=== PATIENT | female | born 1950 | race Caucasian/White ===

== ENCOUNTER 2016-11-13 16:44 | Inpatient (IN) | payer OTHER ==
[2016-11-13] MEDS ORDERED: ONDANSETRON 4 MG/2 ML VIAL IVP ONE (16:54)
[2016-11-13] MEDS ORDERED: NS 1,000 ML IV ONE ×3 (16:54→21:42)
--- NOTE | 2016-11-13 16:54 | EDPHY ---
H & P Stated Complaint: nausea, weakness, iv chemo thursday HPI/ROS: HPI CHIEF COMPLAINT: Nausea, vomiting, diarrhea, generalized weakness, chemotherapy HISTORY OF PRESENT ILLNESS: This patient is a very pleasant 66-year-old female , significant past medical history for lung cancer, undergoing chemotherapy Dr. Kc is her oncologist, she presents to the emergency room for persistent nausea vomiting and diarrhea. Patient tells me on Thursday she got a new round and dose of chemotherapy since then she has had persistent nausea vomiting diarrhea. [facility] given IV fluids according to the patient she was given 2 L of fluid or blood pressure was running low in the 80s this did not improved after 2 L of fluids so she was referred here to the emergency room for further evaluation. Upon arrival here in emergency room she does complain of nausea, blood pressure is 89 systolic. She denies fever. She denies chest pain or shortness of breath. Denies fever. Does admit to having diarrhea denies abdominal pain. She does endorse generalized weakness. Past Medical History: Lung CA Past Surgical History: Right chest port Social History: Denies use of drugs alcohol tobacco products Family History: Noncontributory ROS REVIEW OF SYSTEMS: A comprehensive 10 point review of systems is otherwise negative aside from elements mentioned in the history of present illness. Exam Constitutional appears dehydrated triage nursing summary reviewed, vital signs reviewed, awake/alert. Eyes normal conjunctivae and sclera, EOMI, PERRLA. HENT oropharynx shows thrush, atraumatic, dry mucous membranes , no epistaxis , neck supple/ no meningismus, no raccoon eyes. Respiratory clear to auscultation bilaterally, normal breath sounds, no respiratory distress, no wheezing. Cardiovascular rate normal, regular rhythm, no murmur, no edema, distal pulses normal. Gastrointestinal soft, non-tender, no rebound, no guarding, normal bowel sounds, no distension, no pulsatile mass. Genitourinary no CVA tenderness. Musculoskeletal no midline vertebral tenderness, full range of motion, no calf swelling, no tenderness of extremities, no meningismus, good pulses, neurovascularly intact. Skin pink, warm, & dry, no rash, skin atraumatic. Neurologic awake, alert and oriented x 3, AAOx3, moves all 4 extremities equally, motor intact, sensory intact, CN II-XII intact, normal cerebellar, normal vision, normal speech. Psychiatric normal mood/affect. Heme/Lymph/Immune no lymphadenopathy. Differential Diagnosis: includes but is not limited to in a particular order, dehydration, sepsis, bacteremia, electrolyte abnormality, acute nausea vomiting from chemotherapy, acute nausea vomiting diarrhea from chemotherapy, diarrheal illness, colitis, C diff Medical Decision Making: Will access her port under sterile conditions, she will be hydrated with IV fluids normal saline, check blood work, lactic acid she will have a CT scan abdomen pelvis due to severe diarrhea and vomiting and undergoing chemotherapy to rule out acute inflammatory process. Check urinalysis. Re-evaluation: ED x-ray chest one view: negative for acute cardiopulmonary disease. No focal infiltrate. CT scan of the abdomen pelvis with IV contrast The results of the study are diffuse colitis. The study was read by Dr. Cantor. I viewed the images myself on the PACS system. 1800: re-evaluation it is noted this patient has a low potassium at 3.0 This will be repleted. blood cultures have been pulled lactic acid has been pulled. Patient is not febrile. Patient receiving IV fluids. She was initially hypotensive when she arrived here in the 80s however currently she is 102 Systolic. Patient need to be admitted to the hospital service for hypokalemia, dehydration, ongoing nausea vomiting and diarrhea. 1810: Spoke with Dr. Finley with Oncology understands this patient come into the hospital for dehydration, hypokalemia persistent nausea vomiting and diarrhea. 1813: this patient has significant inflammation of the diffuse: Concerning for severe colitis. No evidence of bowel obstruction no free air. Patient be started on Cipro and Flagyl I will send stool studies and C diff. I will update Oncology. IV Flagyl and IV Cipro has been ordered for the patient. 1820: Re-evaluation at this time blood pressure [address] scan shows diffuse colitis. No free air. No bowel obstruction. Patient has been ordered Cipro and Flagyl. Getting her 4th L of fluid. Spoke with Dr. Colmenares the hospitalist service agrees to admit this patient. Patient be admitted to step-down unit. Critical Care: Total Critical Care Time Spent Managing this Patient: 65 Minutes. This time was spent Exclusively with this patient. This Care was exclusive of procedures. The Organ System/life at risk was metabolic, hemodynamic, Sepsis This Patient was in Critical Condition because severe dehydration, colitis, hypokalemia, neutropenia Patient admitted for Sepsis. Colitis. Dehydration. Volume Depletion. However, Lactic <2.5 and BP stable in the 100s systolic. Will watch closely, if BP beomes more soft, or MAP >65 May need ICU/Pressors through Port. Blood Cultures Pulled. Broad Spectum ABx given. Source: Patient - Personal History Current Tetanus/Diphtheria Vaccine: Unsure Current Tetanus Diphtheria and Acellular Pertussis (TDAP): Unsure - Medical/Surgical History Hx Asthma: No Hx Chronic Respiratory Disease: No Hx Diabetes: No Hx Cardiac Disease: No Hx Renal Disease: No Hx Cirrhosis: No Hx Alcoholism: No Hx HIV/AIDS: No Hx Splenectomy or Spleen Trauma: No Other PMH: lung ca - Social History Smoking Status: Never smoked Constitutional: Initial Vital Signs Temperature (C) 36.4 C 11/13/16 16:50 Heart Rate 108 H 11/13/16 16:50 Respiratory Rate 16 11/13/16 16:50 Blood Pressure 89/58 L 11/13/16 16:50 O2 Sat (%) 95 11/13/16 16:50 O2 Delivery Mode Room Air O2 (L/minute) 1 Allergies/Adverse Reactions: No Known Allergies Allergy (Unverified 11/13/16 16:49) Home Medications: Medication Instructions Recorded ALPRAZolam [Xanax 0.25 MG (*)] 0.25 mg PO TID 11/13/16 Atenolol [Tenormin 25 mg (*)] 25 mg PO DAILY 11/13/16 Metformin HCl [Metformin HCl ER] 500 mg PO BID 11/13/16 Ondansetron Odt [Zofran Odt 4 mg 8 mg PO TID 11/13/16 (*)] Zolpidem Tartrate [Ambien 5MG (*)] 10 mg PO HS 11/13/16 Medical Decision Making - Data Points Laboratory Results: Laboratory Results 11/13/16 17:10 11/13/16 17:10 Medications Given: Discontinued Medications Filgrastim-Sndz (Zarxio) 300 mcg SC DAILY AT 2PM ENDY Stop: 05/13/17 13:59 Last Admin: 11/15/16 15:28 Dose: 300 mcg Sodium Chloride (Ns) 1,000 mls @ 0 mls/hr IV ONCE ONE PRN Reason: Wide Open Stop: 11/13/16 16:55 Last Admin: 11/13/16 17:21 Dose: 1,000 mls Cefepime HCl 2 gm/ Dextrose 100 mls @ 200 mls/hr IV EDNOW ONE PRN Reason: Protocol Stop: 11/13/16 18:20 Last Admin: 11/14/16 07:41 Dose: Not Given Vancomycin/Sodium Chloride (Vancomycin 1 Gm (Premix)) 250 mls @ 250 mls/hr IV EDNOW ONE PRN Reason: Protocol Stop: 11/13/16 18:50 Last Admin: 11/13/16 18:06 Dose: 250 mls Potassium Chloride (Potassium Cl 20 Meq (Premix)) 100 mls @ 50 mls/hr IV EDNOW ONE Stop: 11/13/16 19:50 Last Admin: 11/13/16 19:15 Dose: 100 mls Ciprofloxacin/Dextrose (Cipro 200 Mg (Premix)) 100 mls @ 100 mls/hr IV EDNOW ONE PRN Reason: Protocol Stop: 11/13/16 19:11 Last Admin: 11/13/16 20:43 Dose: Not Given Metronidazole/Sodium Chloride (Flagyl 500 Mg (Premix)) 100 mls @ 100 mls/hr IV EDNOW ONE PRN Reason: Protocol Stop: 11/13/16 19:11 Last Admin: 11/13/16 19:25 Dose: 100 mls Sodium Chloride (Ns) 1,000 mls @ 0 mls/hr IV ONCE ONE PRN Reason: Wide Open Stop: 11/13/16 18:17 Last Admin: 11/13/16 19:37 Dose: 1,000 mls Cefepime HCl 1 gm/ Dextrose 50 mls @ 100 mls/hr IV EDNOW ONE PRN Reason: Protocol Stop: 11/13/16 19:05 Last Admin: 11/14/16 07:41 Dose: Not Given Cefepime HCl 2 gm/ Dextrose 100 mls @ 200 mls/hr IV ONCE ONE PRN Reason: Protocol Stop: 11/13/16 19:08 Last Admin: 11/13/16 21:10 Dose: 100 mls Potassium Chloride 20 meq/ (Sodium Chloride) 1,000 mls @ 125 mls/hr IV CONT ENDY Stop: 05/12/17 18:59 Last Admin: 11/13/16 23:14 Dose: 1,000 mls Metronidazole/Sodium Chloride (Flagyl 500 Mg (Premix)) 100 mls @ 100 mls/hr IV Q8HRS ENDY PRN Reason: Protocol Stop: 12/14/16 01:59 Last Admin: 11/14/16 08:57 Dose: 100 mls Cefepime HCl 1 gm/ Dextrose 50 mls @ 100 mls/hr IV Q8HRS ENDY PRN Reason: Protocol Stop: 12/14/16 01:59 Last Admin: 11/14/16 08:56 Dose: 50 mls Norepinephrine 4 mg/ Dextrose 500 mls @ 0 mls/hr IV CONT ENDY; Titrate PRN Reason: Protocol Stop: 05/12/17 21:29 Last Admin: 11/16/16 08:51 Dose: 500 mls Sodium Chloride (Ns) 1,000 mls @ 0 mls/hr IV ONCE ONE PRN Reason: Wide Open Stop: 11/13/16 21:43 Last Admin: 11/13/16 21:50 Dose: 1,000 mls Potassium Chloride (Potassium Cl 10 Meq (Premix)) 100 mls @ 100 mls/hr IV Q1H [facility] Stop: 11/14/16 04:12 Last Admin: 11/14/16 04:10 Dose: 100 mls Vancomycin HCl 1 gm/ Dextrose 250 mls @ 250 mls/hr IV DAILY@1800 [facility] Stop: 12/14/16 17:59 Last Admin: 11/14/16 21:20 Dose: 250 mls Piperacillin/Tazobactam/Dextrose (Zosyn (Premix)) 100 mls @ 200 mls/hr IV Q6 [facility] Stop: 12/14/16 11:59 Last Admin: 11/18/16 12:31 Dose: 100 mls Micafungin Sodium 100 mg/ (Sodium Chloride) 100 mls @ 100 mls/hr IV DAILY [facility] Stop: 12/14/16 09:59 Last Admin: 11/18/16 09:22 Dose: 100 mls Potassium Chloride/Sodium Chloride (Ns W/ 20 Kcl/L) 1,000 mls @ 75 mls/hr IV CONT [facility] Stop: 05/13/17 10:14 Last Admin: 11/14/16 11:27 Dose: 1,000 mls Potassium Chloride (Potassium Cl 10 Meq (Premix)) 100 mls @ 100 mls/hr IV Q1H [facility] Stop: 11/14/16 17:28 Last Admin: 11/14/16 17:11 Dose: 100 mls Potassium Chloride (Potassium Cl 10 Meq (Premix)) 100 mls @ 100 mls/hr IV Q1H ENDY Stop: 11/15/16 00:23 Last Admin: 11/15/16 01:09 Dose: 100 mls Albumin Human (Albumin 25 % (Premix)) 50 mls @ 0 mls/hr IV ONCE ONE PRN Reason: As Directed Stop: 11/15/16 08:37 Last Admin: 11/15/16 08:46 Dose: 50 mls Sodium Chloride (Ns) 500 mls @ 0 mls/hr IV ONCE ONE PRN Reason: Wide Open Stop: 11/15/16 08:37 Last Admin: 11/15/16 08:44 Dose: 500 mls Potassium Phosphate 20 mmol/ (Dextrose) 256.6667 mls @ 42.778 mls/hr IV ONCE@ 12 ONE Stop: 11/15/16 17:59 Last Admin: 11/15/16 11:22 Dose: 256.6667 mls Sodium Chloride (Ns) 1,000 mls @ 150 mls/hr IV CONT ENDY Stop: 05/14/17 11:44 Last Admin: 11/17/16 05:44 Dose: 1,000 mls Potassium Chloride (Potassium Cl 20 Meq (Premix)) 50 mls @ 50 mls/hr IV ONCE ONE Stop: 11/16/16 00:57 Last Admin: 11/16/16 00:11 Dose: 50 mls Albumin Human (Flexbumin 25 % (Premix)) 100 mls @ 0 mls/hr IV Q6HRS ENDY PRN Reason: As Directed Stop: 05/15/17 08:33 Last Admin: 11/17/16 05:41 Dose: 100 mls Potassium Phosphate 15 mmol/ (Dextrose) 255 mls @ 42.5 mls/hr IV ONCE@12 ONE Stop: 11/16/16 17:59 Last Admin: 11/16/16 10:36 Dose: 255 mls Albumin Human (Alburx 5) 500 mls @ 0 mls/hr IV ONCE ONE PRN Reason: As Directed Stop: 11/16/16 09:50 Last Admin: 11/16/16 10:36 Dose: 500 mls Lorazepam (Ativan Injection) 1 mg IVP EDNOW ONE Stop: 11/13/16 20:50 Last Admin: 11/13/16 21:11 Dose: 1 mg Metoprolol Tartrate (Lopressor Injection) 5 mg IVP ONCE ONE Stop: 11/17/16 09:43 Last Admin: 11/17/16 12:20 Dose: Not Given Nystatin (Mycostatin Oral Liquid) 500,000 unit PO QID ENDY PRN Reason: Protocol Stop: 12/14/16 05:59 Last Admin: 11/18/16 15:34 Dose: Not Given Ondansetron HCl (Zofran) 4 mg IVP EDNOW ONE Stop: 11/13/16 16:55 Last Admin: 11/13/16 17:21 Dose: 4 mg Departure - Departure Disposition: [facility] Acute Clinical Impression: Hypokalemia, Dehydration, Thrush, Colitis Vomiting Qualifiers: Vomiting type: unspecified Vomiting Intractability: intractable Nausea presence : with nausea Qualified Code(s): R11.2 - Nausea with vomiting, unspecified Lung cancer Qualifiers: Laterality: unspecified laterality Lung location: unspecified part of lung Qualified Code(s): C34.90 - Malignant neoplasm of unspecified part of unspecified bronchus or lung Neutropenia Qualifiers: Neutropenia type: unspecified Qualified Code(s): D70.9 - Neutropenia, unspecified Condition: Fair
[2016-11-13] MEDS ORDERED: IOPAMIDOL (ISOVUE-300) 100 ML BTL IV ONE (17:09)
[2016-11-13 17:32] LABS: ADD DIFF? YES; ADD MORPH? NO; ATYPICAL LYMPHOCYTE FLAG 0 (0-99); FRAGMENT RBC FLAG 0 (0-99); HEMOGLOBIN 9.4 g/dL (12.6-16.3); LEFT SHIFT FLG 70 (0-99); LIPEMIA HEMOLYSIS FLAG 80 (0-99); MEAN CELL HEMOGLOBIN 28.8 pg (27.9-34.1); MEAN CELL HEMOGLOBIN CONCENTR. 33.6 g/dL (32.4-36.7); MEAN CELL VOLUME 85.9 fL (81.5-99.8); MEAN PLATELET VOLUME 11.7 fL (8.7-11.7); PLATELET CLUMPS FLAG 10 (0-99); PLATELET COUNT 166 10^3/uL (150-400); RED BLOOD CELL COUNT 3.26 10^6/uL (4.18-5.33); RED CELL DISTRIBUTION WIDTH 13.1 % (11.5-15.2)
[2016-11-13 17:37] LABS: ADD SCAN? NO
[2016-11-13 17:38] LABS: INR 1.44 (0.83-1.16); PROTIME(PATIENT) 17.5 SEC (12.0-15.0)
[2016-11-13 17:45] LABS: ALANINE AMINOTRANSFERASE 37 IU/L (9-52); ALBUMIN 2.1 g/dL (3.5-5.0); ALKALINE PHOSPHATASE 79 IU/L (38-126); ANION GAP 7 mEq/L (8-16); ASPARTATE AMINOTRANSFERASE 23 IU/L (14-46); BILIRUBIN,TOTAL 0.6 mg/dL (0.1-1.4); BILIRUBIN-CONJUGATED 0.4 mg/dL (0.0-0.5); BILIRUBIN-UNCONJUGATED 0.2 mg/dL (0.0-1.1); CALCIUM 8.1 mg/dL (8.5-10.4); CARBON DIOXIDE 18 mEq/l (22-31); CHLORIDE 112 mEq/L (97-110); CREATININE 0.8 mg/dL (0.6-1.0); GLOMERULAR FILTRATION RATE > 60; GLUCOSE 160 mg/dL (70-100); SODIUM 137 mEq/L (134-144); TOTAL PROTEIN 4.2 g/dL (6.3-8.2)
[2016-11-13] MEDS ORDERED: VANCOMYCIN HCL/NORMAL SALINE 250 ML IV ONE (17:51)
[2016-11-13] MEDS ORDERED: CEFEPIME HCL 2 GM in D5W 100 ML IV ONE ×2 (17:51→18:39)
[2016-11-13] MEDS ORDERED: POTASSIUM Cl (KCl) 100 ML IV ONE (17:51)
[2016-11-13] MEDS ORDERED: POTASSIUM Cl (KCl) 20 MEQ/50 ML BAG IV ONE (17:55)
[2016-11-13] MEDS ORDERED: CIPROFLOXACIN 200 MG/DEXTROSE 100 ML IV ONE (18:12)
[2016-11-13] MEDS ORDERED: CEFEPIME HCL 1 GM in D5W 50 ML IV ONE (18:36)
--- NOTE | 2016-11-13 18:36 | PDGENHP ---
History and Physical - Chief Complaint N/V/D - History of Present Illness 66 yo female with h/o NSCLC, followed by Dr. Kc, presented to ED from [facility] with hypotension. She was found to have a sbp in the 70's on arrival for her clinic appointment today. She received 2 L NS and SBP still in low 80's, thus she was sent to the ED. She recently started a new chemo regimen 6 days ago, Taxotere and Ramucirumab. She began feeling poorly shortly after, with vomiting and multiple episodes of watery diarrhea daily. She denies fevers or chills. She otherwise denies abdominal pain. In the ED, she received 2 more liters of NS. Her SBP is maintaining >100. History Information - Allergies/Home Medication List Allergies/Adverse Reactions: No Known Allergies Allergy (Unverified 11/13/16 16:49) Home Medications: ALPRAZolam [Xanax 0.25 MG (*)] 0.25 mg PO TID 11/13/16 [Last Taken 11/13/16 12: 00] Atenolol [Tenormin 25 mg (*)] 25 mg PO DAILY 11/13/16 [Last Taken Unknown] Metformin HCl [Metformin HCl ER] 500 mg PO BID 11/13/16 [Last Taken 11/12/16] Ondansetron Odt [Zofran Odt 4 mg (*)] 8 mg PO TID 11/13/16 [Last Taken 11/12/16 20:00] Zolpidem Tartrate [Ambien 5MG (*)] 10 mg PO HS 11/13/16 [Last Taken 11/12/16] I have personally reviewed and updated: family history, medical history, social history, surgical history - Past Medical History Additional medical history: non-small cell lung cancer, anemia, - Surgical History Additional surgical history: chest wall port - Family History Positive for: non-pertinent Additional family history: both parents are - Social History Smoking Status: Never smoked Alcohol Use: None Drug Use: None Additional social history: Lives alone, son lives 1 block away, and is present at bedside. Review of Systems ROS: 10pt was reviewed & negative except for what was stated in HPI & below Physical Exam Temp Pulse Resp BP Pulse Ox 36.6 C 96 16 90/49 L 99 11/13/16 18:00 11/13/16 18:00 11/13/16 18:00 11/13/16 18:00 11/13/16 18:00 Constitutional: no apparent distress Eyes: PERRL Ears, Nose, Mouth, Throat: moist mucous membranes Cardiovascular: regular rate and rhythym, no murmur, rub, or gallop Respiratory: no respiratory distress, clear to auscultation Gastrointestinal: normoactive bowel sounds, soft, non-tender abdomen Skin: other (+pallor, decreased capillary refill) Musculoskeletal: full muscle strength Neurologic: AAOx3 Psychiatric: interacting appropriately Lab Data & Imaging Review 11/13/16 17:10 11/13/16 17:10 WBC 0.37 10^3/uL (3.80-9.50) L* 11/13/16 17:10 RBC 3.26 10^6/uL (4.18-5.33) L 11/13/16 17:10 Hgb 9.4 g/dL (12.6-16.3) L 11/13/16 17:10 Hct 28.0 % (38.0-47.0) L 11/13/16 17:10 MCV 85.9 fL (81.5-99.8) 11/13/16 17:10 MCH 28.8 pg (27.9-34.1) 11/13/16 17:10 MCHC 33.6 g/dL (32.4-36.7) 11/13/16 17:10 RDW 13.1 % (11.5-15.2) 11/13/16 17:10 Plt Count 166 10^3/uL (150-400) 11/13/16 17:10 MPV 11.7 fL (8.7-11.7) 11/13/16 17:10 Neut % (Auto) Not Reported 11/13/16 17:10 Lymph % (Auto) Not Reported 11/13/16 17:10 [place] % (Auto) Not Reported 11/13/16 17:10 Eos % (Auto) Not Reported 11/13/16 17:10 Baso % (Auto) Not Reported 11/13/16 17:10 Nucleat RBC Rel Count 0.0 % (0.0-0.2) 11/13/16 17:10 Absolute Neuts (auto) Not Reported 11/13/16 17:10 Absolute Lymphs (auto) Not Reported 11/13/16 17:10 Absolute Monos (auto) Not Reported 11/13/16 17:10 Absolute Eos (auto) Not Reported 11/13/16 17:10 Absolute Basos (auto) Not Reported 11/13/16 17:10 Absolute Nucleated RBC 0.00 10^3/uL (0-0.01) 11/13/16 17:10 Immature Gran % Not Reported 11/13/16 17:10 Immature Gran # Not Reported 11/13/16 17:10 PT 17.5 SEC (12.0-15.0) H 11/13/16 17:10 INR 1.44 (0.83-1.16) H 11/13/16 17:10 APTT 34.0 SEC (23.0-38.0) 11/13/16 17:10 VBG Lactic Acid 1.8 mmol/L (0.7-2.1) 11/13/16 16:54 Sodium 137 mEq/L (134-144) 11/13/16 17:10 Potassium 3.0 mEq/L (3.5-5.2) L 11/13/16 17:10 Chloride 112 mEq/L (97-110) H 11/13/16 17:10 Carbon Dioxide 18 mEq/l (22-31) L 11/13/16 17:10 Anion Gap 7 mEq/L (8-16) L 11/13/16 17:10 BUN 18 mg/dL (7-23) 11/13/16 17:10 Creatinine 0.8 mg/dL (0.6-1.0) 11/13/16 17:10 Estimated GFR > 60 11/13/16 17:10 Glucose 160 mg/dL (70-100) H 11/13/16 17:10 Calcium 8.1 mg/dL (8.5-10.4) L 11/13/16 17:10 Total Bilirubin 0.6 mg/dL (0.1-1.4) 11/13/16 17:10 Conjugated Bilirubin 0.4 mg/dL (0.0-0.5) 11/13/16 17:10 Unconjugated Bilirubin 0.2 mg/dL (0.0-1.1) 11/13/16 17:10 AST 23 IU/L (14-46) 11/13/16 17:10 ALT 37 IU/L (9-52) 11/13/16 17:10 Alkaline Phosphatase 79 IU/L (38-126) 11/13/16 17:10 Total Protein 4.2 g/dL (6.3-8.2) L 11/13/16 17:10 Albumin 2.1 g/dL (3.5-5.0) L 11/13/16 17:10 Lipase 35.0 IU/L (23-300) 11/13/16 17:10 Assessment & Plan Assessment: Septic shock with colitis in the setting of N/V/D - Initially considered hypotension secondary to volume depletion due to GI losses. She is afebrile with a normal lactate, but tachycardic, leukopenic, and has hypotension refractory to 4 L NS fluid boluses, meeting criteria for septic shock. Query C diff colitis. GI pathogen panel pending. With her colitis (?neutropenic enterocolitis), she is at risk for bacterial translocation and bacteremia. -Cont Cefepime, Vanc and IV Flagyl to cover for possible C diff -Add oral Vanc if C diff positive -f/u BCx's and GI pathogen panel -Pressors ordered to maintain MAP >65, add hydrocortisone if requires 2nd pressor -ID consulted Hypokalemia (Acute) - secondary to GI losses. Replace, follow. Metabolic acidosis - lactate normal, may be due to volume depletion. Follow. Metastatic non-small cell lung cancer - Followed by Dr. Kc. Was on Novolumab , just started Taxotere and Ramucirumab 3 days ago. Pt agreeable to palliative care consult, which is ordered -Onc consult tomorrow Portal vein thrombosis - near complete occlusion secondary to compression and thrombus. This sounds more chronic than acute. -will give Lovenox 40 mg tonight, her weight is just 47 kg -can discuss with heme tomorrow if ongoing anti-coagulation is warranted Neutropenia (Acute) - Chronic, secondary to chemo, afebrile. Receiving Neupogen. Anemia - likely BM suppression secondary to chemo. No indication for transfusion at this time. Thrush (Acute) - Nystatin DVT PPLX - Lovenox Code status addressed - pt wishes to be DNR Dispo - inpt
[2016-11-13] MEDS ORDERED: PROTOCOL POTASSIUM 1 DOSE MISC PRN (18:41)
[2016-11-13] MEDS ORDERED: HYDROmorphONE/DILAUDID 1 MG/ML SYR IVP PRN (18:41)
[2016-11-13] MEDS ORDERED: ONDANSETRON DISINTEGRATING 4 MG TAB PO PRN (18:41)
[2016-11-13] MEDS ORDERED: PROTOCOL MAGNESIUM 1 DOSE IV PRN (18:41)
[2016-11-13 18:51] LABS: COLOR PALE YELLOW; LEUKOCYTE ESTERASE,URINE NEGATIVE (NEGATIVE); NITRITE,URINE NEGATIVE (NEGATIVE)
[2016-11-13] MEDS ORDERED: POTASSIUM Cl (KCl) 20 MEQ in 1/2 NS 1,000 ML IV SCH (19:00)
[2016-11-13 19:59] LABS: ELLIPTOCYTES 1+; KERATOCYTES 1+; MACROCYTES 1+; PLATELET ESTIMATE ADEQUATE (ADEQ); POLYCHROMASIA 1+
[2016-11-13] MEDS: ONDANSETRON 4 MG/2 ML VIAL IVP PRN (20:44)
[2016-11-13] MEDS ORDERED: LORazepam 2 MG/ML INJ ONE (20:46)
[2016-11-13] MEDS ORDERED: LORazepam 2 MG/ML INJ IVP ONE (20:49)
[2016-11-13] MEDS ORDERED: VANCOMYCIN 125 MG/2.5 ML UDL PO SCH (21:00)
[2016-11-13] MEDS ORDERED: DOBUTamine/DEXTROSE 250 ML IV SCH (21:30)
[2016-11-13] MEDS ORDERED: VASOPRESSIN/DEXTROSE 250 ML IV SCH (21:30)
[2016-11-13] MEDS ORDERED: PHENYLEPHRINE HCL 50 MG in D5W 250 ML IV SCH (21:30)
--- NOTE | 2016-11-13 21:57 | CPEKG ---
Heart Rate: 153 RR Interval: 392 P-R Interval: 132 QRSD Interval: 62 QT Interval: 224 QTC Interval: 358 P Delaplane: 47 QRS Delaplane: 31 T Wave Delaplane: 213 EKG Severity - ABNORMAL ECG - EKG Impression: SINUS TACHYCARDIA EKG Impression: LOW VOLTAGE IN FRONTAL LEADS EKG Impression: BORDERLINE R WAVE PROGRESSION, ANTERIOR LEADS EKG Impression: NONSPECIFIC T ABNORMALITIES, DIFFUSE LEADS Electronically Signed By: Nick Avila 13-Nov-2016 22:28:39
[2016-11-13] MEDS ORDERED: ALPRAZolam 0.25 MG TAB PO PRN (22:58)
[2016-11-13 23:57] LABS: MIXED VENOUS O2 SATURATION 73 % (65-75)
[2016-11-13] MEDS: ZOLPIDEM TARTRATE 5 MG TAB PO SCH (23:58)
[2016-11-14] MEDS: NOREPINEPHRINE BITARTRATE 4 MG in D5W 500 ML IV SCH ×2 (00:59→17:11)
[2016-11-14] MEDS: ZOLPIDEM TARTRATE 5 MG TAB PO SCH ×2 (01:16→20:35)
[2016-11-14 01:17] LABS: POTASSIUM 3.1 mEq/L (3.5-5.2)
[2016-11-14] MEDS: POTASSIUM Cl (KCl) 100 ML IV SCH ×10 (01:27→23:15)
[2016-11-14] MEDS: CEFEPIME HCL 1 GM in D5W 50 ML IV SCH ×2 (02:54→08:56)
[2016-11-14 02:57] LABS: MIXED VENOUS O2 SATURATION 94 % (65-75)
[2016-11-14] MEDS: NYSTATIN SUSP 500000 UNIT/5 ML UDCUP PO SCH ×4 (04:28→20:35)
[2016-11-14 05:44] LABS: ABSOLUTE NRBC COUNT 0.02 10^3/uL (0-0.01); ATYPICAL LYMPHOCYTE FLAG 0 (0-99); FRAGMENT RBC FLAG 0 (0-99); HEMATOCRIT 29.7 % (38.0-47.0); HEMOGLOBIN 9.6 g/dL (12.6-16.3); LIPEMIA HEMOLYSIS FLAG 80 (0-99); MEAN CELL HEMOGLOBIN 28.6 pg (27.9-34.1); MEAN CELL HEMOGLOBIN CONCENTR. 32.3 g/dL (32.4-36.7); MEAN CELL VOLUME 88.4 fL (81.5-99.8); PLATELET CLUMPS FLAG 10 (0-99); PLATELET COUNT 247 10^3/uL (150-400); RED BLOOD CELL COUNT 3.36 10^6/uL (4.18-5.33); RED CELL DISTRIBUTION WIDTH 13.5 % (11.5-15.2)
[2016-11-14 05:53] LABS: ANION GAP 10 mEq/L (8-16); CARBON DIOXIDE 12 mEq/l (22-31); CHLORIDE 120 mEq/L (97-110); CREATININE 0.8 mg/dL (0.6-1.0); GLOMERULAR FILTRATION RATE > 60; GLUCOSE 193 mg/dL (70-100); MAGNESIUM 1.9 mg/dL (1.6-2.3); POTASSIUM 4.2 mEq/L (3.5-5.2); SODIUM 142 mEq/L (134-144)
[2016-11-14 06:45] LABS: ADD MORPH? NO; LEFT SHIFT FLG 190 (0-99); NRBC-AUTO% 2.9 % (0.0-0.2)
[2016-11-14 06:47] LABS: ADD SCAN? NO
[2016-11-14 06:48] LABS: % IMMATURE GRANULYOCYTES 1.5 % (0.0-1.1)
[2016-11-14 06:49] LABS: ABSOLUTE IMMATURE GRANULOCYTES 0.01 10^3/uL (0.00-0.10); ADD DIFF? NO
[2016-11-14] MEDS: ENOXAPARIN 40 MG/0.4 ML SYR SC SCH (08:57)
[2016-11-14] MEDS ORDERED: ENOXAPARIN 40 MG/0.4 ML SYR SC SCH (09:00)
--- NOTE | 2016-11-14 09:32 | GCON ---
INPATIENT ONCOLOGY CONSULTATION DATE OF CONSULTATION: 11/14/2016 REFERRING PHYSICIAN: Bee Colmenares MD Outpatient oncologist is Dr. Alva Kc. REASON FOR CONSULTATION: Neutropenic fever and typhlitis. HISTORY OF PRESENT ILLNESS: The patient is a 66-year-old woman with metastatic non-small cell lung cancer. She received her first dose of third line chemotherapy a week ago, consisting of Taxotere and ramucirumab. She has extensive pulmonary metastases, as well as liver mets and metastases involving the mesenteric root, pancreatic head, left adrenal gland, and mesenteric and retroperitoneal lymph nodes. She began to develop nausea, vomiting and diarrhea a day or two after the chemotherapy and has been in this week to clinic everyday for fluids. Yesterday she was noted to be febrile and also had a low blood pressure. She was transferred to the emergency department. Her blood pressure remained low despite aggressive fluid resuscitation, and she was admitted to the intensive care unit. She remains on Levophed, but that is being weaned off. Her CT scan showed typhlitis, without evidence of abscess or perforation. She says that she is feeling somewhat better this morning, but does feel extremely weak and continues to have some diarrhea. She does not have any abdominal pain. PAST MEDICAL HISTORY: Non-small cell lung cancer, as described above. CURRENT MEDICATIONS: Include cefepime, Lovenox 40 mg subcutaneously daily, Flagyl and vancomycin. ALLERGIES: She has no drug allergies. FAMILY HISTORY: Noncontributory. SOCIAL HISTORY: She is a former smoker. She lives alone, though her son lives in the area. REVIEW OF SYSTEMS: Pertinent positives noted in the HPI. A 14-point review of systems is negative. EXAMINATION: VITAL SIGNS: Her temperature was 36.6, blood pressure 103/59, heart rate 125, oxygen saturation 100% on 2 L. GENERAL: She was a tired, pale- appearing woman in no acute distress. HEENT: Sclerae anicteric. Oropharynx was clear. NECK: Supple, without lymphadenopathy. LUNGS: Clear to auscultation bilaterally. CARDIAC: Regular rate and rhythm. No murmurs, gallops, or rubs. ABDOMEN: Quiet bowel sounds but was nontender, nondistended. EXTREMITIES: Without edema. SKIN: No petechiae or purpura. LABORATORY DATA: White count 0.68, with absolute neutrophil count of 190, hemoglobin 9.6, platelets of 247. Sodium 142, potassium 4.2, chloride 120, bicarb of 12, BUN of 15, creatinine 0.8. Liver function tests were normal. Her lactic acid was normal at 1.7. Blood cultures grew out Klebsiella pneumoniae in the anaerobic bottle. IMPRESSION: 1. Metastatic non-small cell lung cancer. 2. Febrile neutropenia. 3. Septic shock due to Klebsiella. She is currently hemodynamically stable, though remains quite ill. A causative organism has been identified. The likely source is the GI tract. RECOMMENDATIONS: 1. Continue broad-spectrum antibiotics and other hemodynamic support. 2. Will add Neupogen to speed the recovery of her white count. 3. She will obviously require significant modifications to her chemotherapy regimen or discontinuation completely of that therapy. She will discuss this with Dr. Kc when she is out of the hospital. /[id number]/MODL MTDD
[2016-11-14] MEDS: MICAFUNGIN NA 100 MG in NS 100 ML IV SCH (10:14)
[2016-11-14] MEDS ORDERED: NS W/ 20 KCl/L 1,000 ML IV SCH (10:15)
[2016-11-14] MEDS: ONDANSETRON 4 MG/2 ML VIAL IVP PRN (10:58)
--- NOTE | 2016-11-14 11:17 | GCON ---
INFECTIOUS DISEASE CONSULT DATE OF CONSULTATION: 11/14/2016 REFERRING PHYSICIAN: Bee Colmenares MD REASON FOR CONSULT: To assist in the management of this 66-year-old female with metastatic non-small cell lung cancer admitted with sepsis. HISTORY OF PRESENT ILLNESS: The patient is a 66-year-old female whose previous medical history is notable for the followin. Metastatic non-small cell lung cancer: Patient was originally diagnosed in [place], [place] last year when she presented with jaundice and compression on her biliary tree from tumor. She was stented at that time. She moved to [place], [place] in May and has been followed by Dr. Kc. Last week, she received her first dose of 3rd line chemotherapy consisting of Taxotere and ramucirumab. Please see discussion below. 2. History of tobacco in the distant past. Regarding her present issues, the patient received chemotherapy as outlined above approximately 1 week ago. Less than 12 hours later, the patient felt significantly unwell with nausea, vomiting and general malaise. Approximately 1 day later, she developed significant watery diarrhea, nonbloody. No associated abdominal pain. This past week she has developed shaking chills and presented yesterday to [facility] where she was found to be significantly hypotensive with systolic blood pressure in the 80s. [facility] and started on broad- spectrum antibiotics and Levophed. A CT scan of the abdomen and pelvis with contrast showed diffuse colitis, particularly in the right side of the colon, consistent with neutropenic enterocolitis, without evidence of abscess or perforation (the patient is notably neutropenic). Speaking with the patient this morning in the presence of her son, she states that she still feels unwell with fatigue being her biggest complaint. She denies abdominal pain, but is nauseated and has been vomiting. She also has significant anorexia and has no desire to eat. She states this has been going on for the past week. She has a mild sore throat and tells me that the sore throat extends into her chest. She denies headache, blurred vision, confusion, chest pain, cough, vaginal discharge, dysuria, skin rash or other. Aside from what is listed above, 10 systems are reviewed and are negative. PREVIOUS MEDICAL HISTORY: As outlined above. MEDICATIONS: Presently include cefepime 1 g IV q.8 hours, metronidazole 500 mg IV q.8 hours, vancomycin 1 g IV daily, Levophed, Lovenox, filgrastim. ALLERGIES: No known drug allergies. SOCIAL HISTORY: The patient is a former smoker. 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 She presently lives in [place] by herself. She has no pets. No recent travel within or outside [facility] [employer] [facility]. No recent antibiotic use. No undercooked foods, poultry , raw eggs or other. No unusual exposures. She is exposed to 3 grandchildren, ages 16, 11 and 8, but none have had a diarrheal illness or feel ill. She has a very supportive son who lives here in [place]. No alcohol. Heavy tobacco use previously. FAMILY HISTORY: Noncontributory. REVIEW OF SYSTEMS: As outlined above. Otherwise, 10 systems are reviewed and all are negative. PHYSICAL EXAM: VITAL SIGNS: T-current is 36.6, T-max equals same, heart rate 103, blood pressure 103/63. She is saturating 100% on 2 L. GENERAL: Chronically ill-appearing female, pale, looks older than stated age, lying in bed. HEENT: Atraumatic, normocephalic. Pupils equal, round, reactive to light. Extraocular movements are intact. No conjunctival injection, icterus or petechiae. Her neck is supple. No sinus process tenderness or discharge from the nares. Mucous membranes are moist. The patient has extensive oral candidiasis with white plaques on the buccal mucosa bilaterally, beneath her tongue, as well as coating the posterior oropharynx. NECK: Notable for no cervical adenopathy. No thyromegaly or palpable thyroid nodules. CARDIOVASCULAR: S1 and S2. No rubs, gallops or murmurs audible. She is not tachycardic on my exam. CHEST: The patient has a port in her right chest that has been present for the past year. There is no tenderness or evidence of erythema surrounding the port. LUNGS: Clear to auscultation bilaterally with no rales, rhonchi, or wheeze. No increased respiratory effort. ABDOMEN: Not distended. Soft. Hypoactive bowel sounds. No tenderness to palpation on exam. EXTREMITIES: No muscle belly tenderness or evidence of arthritis. SKIN : Warm and dry. No obvious rashes. Overall pale. NEUROLOGIC: The patient is alert and oriented x3. She is moving all 4 extremities. No sensory deficits. LABORATORY DATA: Blood cultures drawn on admission yesterday afternoon. PCR has identified Klebsiella pneumoniae. GI tract PCR is pending. White blood cell count of 0.68, hematocrit of 29.7, platelet count of 247. INR 1.44. BUN and creatinine 15/0.8. AST 23, ALT 37, alkaline phosphatase 79. Bicarbonate 12. Urinalysis is normal. RADIOGRAPHIC DATA: Abdominal CT scan reviewed personally with Dr. Land reveals diffuse colitis, particularly on the right side of the colon with no evidence of perforation or abscess. The patient has extensive metastatic disease to the liver, pancreas, mesenteric root, left adrenal gland and retroperitoneal nodes. 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 This was visible on CT scan dated October 23, 2016. Chest x-ray: No evidence of pneumonia. IMPRESSION: Unfortunate 66-year-old female with metastatic non-small cell lung carcinoma status post chemotherapy last week with Taxotere and ramucirumab who now presents with neutropenic enterocolitis and consequent gram negative bacteremia. C. difficile seems less likely. The patient also has extensive oral candidiasis with a probable component of esophageal disease. PLAN: 1. Continue Vancomycin for now pending maturation of blood cultures. Hopefully can discontinue this antibiotic shortly. 2. Change Cefepime and Metronidazole to Zosyn 4.5 g IV q.6 hours for better enterococcal coverage in the setting of neutropenic enterocolitis. 3. Stool PCR (which includes C. difficile testing) is pending. 4. Because the patient has bacteria growing through her port, she may need this removed if she does not clear her bacteremia quickly. Will make this decision moving forward during her hospitalization. 5. The patient has extensive oropharyngeal candidiasis and probable esophageal disease. Will add Micafungin for now pending blood culture results. Can likely transition to fluconazole at a later date. 6. Given metastases to one of her adrenal glands, check serum cortisol. 7. Repeat blood cultures tomorrow. Thank you very much for consulting Infectious Diseases. We will continue to follow this patient with you. /[id number]/MODL MTDD
[2016-11-14] MEDS: FAMOTIDINE 20 MG TAB PO SCH ×2 (11:30→20:35)
[2016-11-14] MEDS: LORazepam 0.5 MG TAB PO PRN ×2 (11:30→18:15)
[2016-11-14] MEDS: PIPERACILLIN/TAZO 4.5 GM/DEX 100 ML IV SCH ×2 (12:42→17:44)
--- NOTE | 2016-11-14 13:06 | CPEKG ---
Heart Rate: 104 RR Interval: 577 P-R Interval: 124 QRSD Interval: 66 QT Interval: 332 QTC Interval: 437 P Latty: 8 QRS Latty: 27 T Wave Latty: 17 EKG Severity - OTHERWISE NORMAL ECG - EKG Impression: SINUS TACHYCARDIA Electronically Signed By: Alli Monson 14-Nov-2016 14:44:50
[2016-11-14 13:22] LABS: POTASSIUM 3.2 mEq/L (3.5-5.2)
--- NOTE | 2016-11-14 13:57 | PDPCPN ---
Palliative Care Progress Note Assessment/Plan: Referring provider: Dr Colmenares Reason for Consult: Complex medical decision making symptom control HPI: Chanel Apodaca is a 66 yo female with PMH NSCLC with mets to liver, pancreas, and adrenal glands admitted to the hospital for increasing nausea/vomiting, diarrhea, and hypotension. Being treated for septic shock 2/2 klebsiella. Required ICU admission for pressor support which is being weaned down. Recently started third line chemotherapy 1 week ago with uncontrolled symptoms of nausea/ vomiting and diarrhea since then. On admission with neutropenia. Palliative care consulted for complex medical decision making. Spoke with son Jaxon outside of the room this morning. He shared Chanel's journey over the past year. She was dx about 1 year ago in October. She thought she was having some gallbladder issues but was dx with stage IV lung cancer. She then retired from her job and moved to [place] to be closer to her son. She underwent first line treatment and maintained a good quality of life and was hopeful for the future. Jaxon stated he has been prepared for the end of her life since her dx but feels Chanel has always had hope for the future. It was hard when she did not do well with the second line treatment a few weeks ago finding out it was not working as well with side effects. They have discussed all options including continued treatment vs comfort only. Jaxon feels Chanel values being independent and a private person. They would like more help at home but Jaxon is unsure how Chanel feels about further treatment for her cancer but hopes to have the conversation again when she is back at home. Assessment: physical: - pain: on occasion in abdomen - dilaudid PRN IV or oxy IR PRN - Nausea/vomiting: - zofran PRN - if needing something more then compazine - Diarrhea: - on antibiotics per primary team - consider immodium if continues Emotional/psychological: - Anxiety: at home on xanax 0.25mg TID scheduled Advanced care planning: Is patient decisional?: yes with help MDPOA: son Jaxon is MDPOA. Paperwork on file at [facility] Code status: DNR Plan: Continue palliative care conversations as needed. Likely decide on future chemo treatments as outpatient. Family would like information on increased support at home for now and in the future as needed. Subjective: fatigued Objective: Social History: Moved from [place] last year to be closer to her son. 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 Medication list reviewed ROS: General: fatigue, weakness, weight loss ENT: negative Resp: negative GI: poor appetite, diarrhea, nausea/vomiting : negative MS: occasional abdominal pain Skin: negative Neuro: some confusion Psych: anxiety Functional assessment: PPS: 40% Functional status: prior to hospitalization independent with ADLs, now with weakness and requires some assistance with all ADLs. Vital Signs Temp Pulse Resp BP Pulse Ox 36.6 C 103 H 20 89/50 L 98 11/13/16 22:48 11/14/16 13:08 11/14/16 13:08 11/14/16 13:08 11/14/16 13:08 Laboratory Results 11/14/16 05:15 11/14/16 12:45 11/13/16 11/14/16 11/15/16 05:59 05:59 05:59 Intake Total 3810 412 Output Total 2700 800 Balance 1110 -388 PT 17.5 SEC (12.0-15.0) H 11/13/16 17:10 INR 1.44 (0.83-1.16) H 11/13/16 17:10 Physical Exam - Physical Exam General Appearance: other (fatigued) Respiratory: No respiratory distress, No accessory muscle use Skin: normal color, warm/dry Neuro/Psych: oriented x 3 ICD10 Worksheet Patient Problems: Problems Problem Status Onset Colitis Acute Dehydration Acute Hypokalemia Acute Lung cancer Acute Neutropenia Acute Palliative care encounter Acute Thrush Acute Vomiting Acute - ICD10 Problem Qualifiers (1) Palliative care encounter
[2016-11-14] MEDS: LOPERAMIDE HCL 2 MG CAP PO PRN ×3 (14:14→20:35)
[2016-11-14] MEDS: FILGRASTIM-SNDZ 300 MCG/0.5 ML SYR SC SCH (14:35)
--- NOTE | 2016-11-14 16:32 | GCON ---
DATE OF CONSULTATION: 11/14/2016 REFERRING PHYSICIAN: Jenn Bravo MD PULMONARY/CRITICAL CARE CONSULTATION REASON FOR REFERRAL: Evaluation and management of hypotension and fever. HISTORY: The patient is a 66-year-old woman with a history of metastatic non-small cell lung cancer which was diagnosed in [place] when she presented with jaundice and a tumor compressing her biliary t ree. A stent was placed. She then moved to [place], [place] and started 3rd line chemotherapy las t week with Taxotere and ramucirumab. She started to develop nausea, vomiting and diarrhea a day or 2 after chemotherapy and had been in the clinic every day getting fluids. Yesterday, she was found to be febrile and also had a low blood pressure, so was transferred to the emergency department. S he remained hypotensive despite fluid resuscitation and was transferred to the intensive care unit. Cefepime, vancomycin and IV Flagyl were given, as well as fluids. The patient has been on norepine phrine, and her dose has been able to be weaned, but she gets hypotensive if it is reduced too quick ly. The patient reports that she feels better. She said her nausea and vomiting have improved and she is not having diarrhea right now. Her sore throat that she had early is a bit better. She feel s that her energy is a little bit better and she feels stronger. PAST MEDICAL HISTORY: Anemia. ALLERGIES: None. SOCIAL HISTORY: The patient is a former smoker. She denies alcohol use. FAMILY HISTORY: Unremarkable. REVIEW OF SYSTEMS: A 10-point review of systems adds nothing to the History of Present Illness. PHYSICAL EXAMINATION: GENERAL: The patient was sleeping but arousable. She is still somewhat weak . VITAL SIGNS: Her blood pressure is 119/76 with a pulse of 110. She is afebrile. Oxygen saturat ions are 99% on room air. HEENT: Normocephalic and atraumatic. She has oral candidiasis. No icte duncan. NECK: No adenopathy. Trachea is midline. CHEST: Clear to auscultation. CARDIAC: Regular rate and rhythm without murmur. ABDOMEN: Soft and nontender. Bowel sounds are present. EXTREMITI ES: No clubbing, cyanosis or edema. LABORATORY: Chemistry group shows a normal BUN and creatinine of 15 and 0.8. Carbon dioxide level is 12, down from 18. A potassium is 3.2. Her glucose is 193. An anion gap is 10, up from 7. Whit e blood count is 0.7, hemoglobin is 9.6, platelet count is 247. An INR is 1.4. Arterial blood gas shows a venous lactate of 1.7. A chest x-ray shows clear lungs with elevation of the right hemidiap hragm. IMAGES REVIEWED: A CT scan of the abdomen shows diffuse colitis with extensive metastatic disease a ffecting the liver, pancreas, mesenteric root, left adrenal gland and retroperitoneal eduard nodes. A blood culture from November 13 is positive for Klebsiella pneumonia. ASSESSMENT: 1. Klebsiella pneumonia/sepsis. This is likely due to typhlitis, with colitis seen on the CT scan and neutropenia. The patient's antibiotics have been changed to vancomycin and Zosyn. The blood cu lture that was drawn came from her chemotherapy port, so this may be infected. 2. Hypertension. The patient had tachycardiac and this is improved. The hypertension is improved, but the patient is still requiring low-dose norepinephrine. This is likely due to the patient's ba cteremia/sepsis. She is clinically improved. 3. Esophageal candidiasis. The patient has been started on micafungin. 4. Tachycardia. This is improved. 5. Metastatic lung cancer. 6. Neutropenia. The patient is being followed by Oncology and has been started on Neupogen. RECOMMENDATIONS: 1. Continue IV fluids and pressors in order to maintain blood pressure. 2. Antibiotics have been adjusted by Infectious Disease. 3. Neupogen as per Oncology. 4. Start p.o. as tolerated. 5. Repeat blood cultures to see how quickly the bacteremia clears. If it does not clear quickly, t he port will probably need to be removed. /[id number]/MODL
[2016-11-14] MEDS ORDERED: VANCOMYCIN 1 GM in D5W 250 ML IV SCH (18:00)
--- NOTE | 2016-11-14 18:56 | HOSPPROG ---
Hospitalist Progress Note Assessment/Plan: * septic shock * wean levophed * cont iv fluids * source is klebsiella bacteremia * klebsellia bacteremia * port may be involved * neutropenic fever * neuopgen * broad spectrum abx *Diarrhea/typhlitis * gi panel negative * start lomotil * thrush * metastatic nonsmall cell lung cancer 35 min critical time spent Subjective: feels pretty weak. poor appetite Objective: Vital Signs Temp Pulse Resp BP Pulse Ox 36.6 C 104 H 25 H 102/73 92 11/13/16 22:48 11/14/16 18:00 11/14/16 18:00 11/14/16 18:00 11/14/16 18:00 Laboratory Results 11/14/16 05:15 11/14/16 12:45 11/13/16 11/14/16 11/15/16 05:59 05:59 05:59 Intake Total 3810 1491 Output Total 2700 1550 Balance 1110 -59 PT 17.5 SEC (12.0-15.0) H 11/13/16 17:10 INR 1.44 (0.83-1.16) H 11/13/16 17:10 discussed with pulm, ID - Physical Exam Constitutional: no apparent distress, appears nourished, not in pain Eyes: anicteric sclera, EOMI Ears, Nose, Mouth, Throat: oral thrush Cardiovascular: regular rate and rhythym, no murmur, rub, or gallop Respiratory: no respiratory distress, no rales or rhonchi, clear to auscultation Gastrointestinal: normoactive bowel sounds, soft, non-tender abdomen, no palpable masses Skin: warm Neurologic: AAOx3 Psychiatric: interacting appropriately, not anxious, not encephalopathic, thought process linear ICD10 Worksheet Patient Problems: Problems Problem Status Onset Colitis Acute Dehydration Acute Hypokalemia Acute Lung cancer Acute Neutropenia Acute Palliative care encounter Acute Thrush Acute Vomiting Acute
[2016-11-14 21:11] LABS: POTASSIUM 3.6 mEq/L (3.5-5.2)
[2016-11-15] MEDS: POTASSIUM Cl (KCl) 100 ML IV SCH (01:09)
[2016-11-15] MEDS: PIPERACILLIN/TAZO 4.5 GM/DEX 100 ML IV SCH ×4 (01:42→17:35)
[2016-11-15] MEDS: LORazepam 0.5 MG TAB PO PRN ×2 (01:43→13:12)
[2016-11-15] MEDS: ACETAMINOPHEN 325 MG TAB PO PRN (02:30)
[2016-11-15 04:47] LABS: ABSOLUTE NRBC COUNT 0.12 10^3/uL (0-0.01); ADD DIFF? YES; ATYPICAL LYMPHOCYTE FLAG 0 (0-99); FRAGMENT RBC FLAG 0 (0-99); HEMATOCRIT 30.4 % (38.0-47.0); LIPEMIA HEMOLYSIS FLAG 80 (0-99); MEAN CELL HEMOGLOBIN 28.6 pg (27.9-34.1); MEAN CELL HEMOGLOBIN CONCENTR. 32.9 g/dL (32.4-36.7); MEAN CELL VOLUME 86.9 fL (81.5-99.8); MEAN PLATELET VOLUME 12.2 fL (8.7-11.7); PLATELET CLUMPS FLAG 0 (0-99); PLATELET COUNT 184 10^3/uL (150-400); RED CELL DISTRIBUTION WIDTH 13.7 % (11.5-15.2)
[2016-11-15 04:58] LABS: LEFT SHIFT FLG 300 (0-99); NRBC-AUTO% 1.6 % (0.0-0.2)
[2016-11-15 04:59] LABS: ADD MORPH? NO; ADD SCAN? NO
[2016-11-15 05:06] LABS: ALANINE AMINOTRANSFERASE 41 IU/L (9-52); ALKALINE PHOSPHATASE 99 IU/L (38-126); ANION GAP 8 mEq/L (8-16); ASPARTATE AMINOTRANSFERASE 26 IU/L (14-46); BILIRUBIN,TOTAL 0.9 mg/dL (0.1-1.4); CALCIUM 8.5 mg/dL (8.5-10.4); CARBON DIOXIDE 15 mEq/l (22-31); CHLORIDE 114 mEq/L (97-110); CREATININE 0.9 mg/dL (0.6-1.0); GLOMERULAR FILTRATION RATE > 60; GLUCOSE 330 mg/dL (70-100); POTASSIUM 4.2 mEq/L (3.5-5.2); SODIUM 137 mEq/L (134-144); TOTAL PROTEIN 4.2 g/dL (6.3-8.2)
[2016-11-15] MEDS: NYSTATIN SUSP 500000 UNIT/5 ML UDCUP PO SCH ×4 (05:50→21:45)
[2016-11-15 06:35] LABS: PLATELET ESTIMATE ADEQUATE (ADEQ); TOXIC GRANULATION PRESENT; TOXIC VACUOLIZATION PRESENT
[2016-11-15 06:37] LABS: ECHINOCYTES 2+
[2016-11-15 06:38] LABS: ACANTHOCYTES 1+; GIANT PLATELETS PRESENT; LARGE PLATELETS PRESENT
[2016-11-15] MEDS ORDERED: ALBUMIN 25% 50 ML IV ONE (08:36)
[2016-11-15] MEDS ORDERED: PROTOCOL K PHOSPHATE 1 DOSE IV PRN (08:36)
[2016-11-15] MEDS ORDERED: NS 500 ML IV ONE (08:36)
[2016-11-15] MEDS: LOPERAMIDE HCL 2 MG CAP PO PRN ×2 (09:08→11:23)
[2016-11-15] MEDS: MICAFUNGIN NA 100 MG in NS 100 ML IV SCH (09:39)
[2016-11-15] MEDS: ENOXAPARIN 40 MG/0.4 ML SYR SC SCH (09:39)
[2016-11-15] MEDS: FAMOTIDINE 20 MG TAB PO SCH ×2 (09:39→21:49)
--- NOTE | 2016-11-15 11:23 | PDINTPN ---
Display Director Progress Note Assessment/Plan: Assessment: Neutropenic colitis: Symptoms improved. Neutropenia resolved with Neupogen. Sepsis/bacteremia: 1/2 Blood Cx positive for Klebsiella and GNR. On Zosyn and vancomycin. Still requiring low-dose NE to maintain BP. Thrush: On Micafungin. Plan: Wean NE as tolerated. Repeat Blood Cx. Diet as tolerated. Continue antibiotics. 11/15/16 11:24 11/15/16 11:25 Subjective: Feels better, more energy, no N/V. Appetite still poor. Objective: Vital Signs Temp Pulse Resp BP Pulse Ox 36.7 C 103 H 22 H 87/56 L 97 11/15/16 09:00 11/15/16 10:00 11/15/16 10:00 11/15/16 10:00 11/15/16 10:00 Laboratory Results 11/15/16 04:30 11/15/16 04:30 11/14/16 11/15/16 11/16/16 05:59 05:59 05:59 Intake Total 3810 4022 Output Total 2700 3265 Balance 1110 757 PT 17.5 SEC (12.0-15.0) H 11/13/16 17:10 INR 1.44 (0.83-1.16) H 11/13/16 17:10 Physical Exam - Physical Exam General Appearance: alert, no apparent distress EENT: normal ENT inspection Neck: normal inspection Respiratory: lungs clear, normal breath sounds Cardiac/Chest: regular rate, rhythm, No edema Abdomen: normal bowel sounds, non-tender Skin: normal color, warm/dry Extremities: non-tender Neuro/Psych: alert, normal mood/affect, oriented x 3 ICD10 Worksheet Patient Problems: Problems Problem Status Onset Colitis Acute Dehydration Acute Hypokalemia Acute Lung cancer Acute Neutropenia Acute Palliative care encounter Acute Thrush Acute Vomiting Acute
[2016-11-15] MEDS ORDERED: NS 1,000 ML IV SCH (11:45)
--- NOTE | 2016-11-15 11:50 | HOSPPROG ---
Hospitalist Progress Note Assessment/Plan: * septic shock * wean levophed * cont iv fluids * source is klebsiella bacteremia * klebsellia bacteremia * port may be involved * neutropenic fever * counts have recovered * broad spectrum abx *Diarrhea/typhlitis * gi panel negative * continue Imodium * hyperglycemia * check hemoglobin A1c * start sliding scale insulin * thrush * metastatic nonsmall cell lung cancer * the patient is high risk Subjective: still feels pretty weak. still has diarrhea. No abdominal pain Objective: Vital Signs Temp Pulse Resp BP Pulse Ox 36.7 C 102 H 20 99/73 L 98 11/15/16 09:00 11/15/16 11:00 11/15/16 11:00 11/15/16 11:00 11/15/16 11:00 Laboratory Results 11/15/16 04:30 11/15/16 04:30 11/14/16 11/15/16 11/16/16 05:59 05:59 05:59 Intake Total 3810 4022 Output Total 2700 3265 Balance 1110 757 PT 17.5 SEC (12.0-15.0) H 11/13/16 17:10 INR 1.44 (0.83-1.16) H 11/13/16 17:10 discussed with pulmonology tele personally viewed interpreted sinus tach - Physical Exam Constitutional: no apparent distress, appears nourished, not in pain Eyes: anicteric sclera, EOMI Ears, Nose, Mouth, Throat: oral thrush Cardiovascular: no murmur, rub, or gallop, tachycardia, No edema Respiratory: no respiratory distress, no rales or rhonchi, clear to auscultation Gastrointestinal: normoactive bowel sounds, soft, non-tender abdomen, no palpable masses Skin: warm Neurologic: AAOx3 Psychiatric: interacting appropriately, not anxious, not encephalopathic, thought process linear ICD10 Worksheet Patient Problems: Problems Problem Status Onset Colitis Acute Dehydration Acute Hypokalemia Acute Lung cancer Acute Neutropenia Acute Palliative care encounter Acute Thrush Acute Vomiting Acute
[2016-11-15] MEDS ORDERED: D50W 25 GM/50 ML SYR IVP PRN (11:51)
[2016-11-15] MEDS ORDERED: K PHOS 20 MMOL in D5W 250 ML IV ONE (12:00)
[2016-11-15] MEDS: INSULIN LISPRO 100 UNIT/ML SC SCH ×2 (12:38→17:35)
--- NOTE | 2016-11-15 13:29 | PCMIDPN ---
Assessment/Plan: 1. Neutropenic enterocolitis without abscess or perforation: She is no longer neutropenic, but will continue Zosyn as is for now. GI pathogen PCR negative. Please see #2. Will also discontinue vancomycin given absence of gram positives in cultures. 2. Klebsiella pneumoniae sepsis secondary to #1: Repeat blood cultures today. Hopefully will not need the port removed. Await susceptibilities organism, which should be back tomorrow. 3. Severe oral candidiasis with probable esophageal disease: Markedly improved. Continue Micafungin for now. 11/15/16 13:29 Subjective: Still requiring a small amount of norepinephrine to maintain blood pressure. Serum cortisol yesterday was fine. Patient tells me "I am feeling slightly better." No abdominal pain. States that it is much easier to swallow now. Objective: Zosyn 4.5 g IV q.6 hours day 1. (Antibiotics day 2) Vancomycin 1 g IV daily day 2 Micafungin 100 mg IV daily day 2 Afebrile Vital Signs Temp Pulse Resp BP Pulse Ox 36.7 C 136 H 25 H 96/63 L 95 11/15/16 09:00 11/15/16 13:00 11/15/16 13:00 11/15/16 13:00 11/15/16 12:00 Laboratory Results 11/15/16 04:30 11/15/16 04:30 11/14/16 11/15/16 11/16/16 05:59 05:59 05:59 Intake Total 3810 4022 Output Total 2700 3265 Balance 1110 757 Blood cultures November 1309/17 bottles with Klebsiella pneumoniae - Physical Exam General Appearance: other (Sleeping. Awakens easily. Pale.) EENT: other (Thrush is practically gone.), No scleral icterus Cardiac/Chest: tachycardia Abdomen: non-tender, soft Skin: No rash ICD10 Worksheet Patient Problems: Problems Problem Status Onset Colitis Acute Dehydration Acute Hypokalemia Acute Lung cancer Acute Neutropenia Acute Palliative care encounter Acute Thrush Acute Vomiting Acute
[2016-11-15] MEDS: FILGRASTIM-SNDZ 300 MCG/0.5 ML SYR SC SCH (15:28)
--- NOTE | 2016-11-15 15:50 | SOAPPROG ---
SOAP Progress Note Assessment/Plan: E&M NSCLC * Metastatic NSCLC: day 9 cycle 1 of docetaxel + ramicurimab * Klebsiella bacteremia with septic shock: levophed being tapered * Neutropenic enterocolitis: wbc recovering and will stop zarxio after today; continue abx; appreciate ID. With recovery, hopefully she will start to recover more rapidly * Hyperglycemia: agree with insulin protocol Subjective: Received ativan and sleeping. Will awaken. Son with patient. Discussed with nurse who reports still with watery stools but perhaps less. Objective: Vital Signs Temp Pulse Resp BP Pulse Ox 36.7 C 136 H 25 H 96/63 L 95 11/15/16 09:00 11/15/16 13:00 11/15/16 13:00 11/15/16 13:00 11/15/16 12:00 Laboratory Results 11/15/16 04:30 11/15/16 04:30 11/14/16 11/15/16 11/16/16 05:59 05:59 05:59 Intake Total 3810 4022 Output Total 2700 3265 Balance 1110 757 PT 17.5 SEC (12.0-15.0) H 11/13/16 17:10 INR 1.44 (0.83-1.16) H 11/13/16 17:10 Laboratory Tests 11/13/16 11/14/16 11/15/16 17:10 05:15 04:30 WBC 0.37 L* 0.68 L* 7.34 Absolute Seg Neuts 0.02 L 1.76 Absolute Band Neuts 0.01 2.79 H Physical Exam - Physical Exam General Appearance: thin Respiratory: lungs clear Cardiac/Chest: tachycardia Abdomen: soft, No normal bowel sounds (hyperactive) ICD10 Worksheet Patient Problems: Problems Problem Status Onset Colitis Acute Dehydration Acute Hypokalemia Acute Lung cancer Acute Neutropenia Acute Palliative care encounter Acute Thrush Acute Vomiting Acute
[2016-11-15] MEDS ORDERED: VANCOMYCIN HCL/NORMAL SALINE 250 ML IV SCH (18:00)
[2016-11-15 19:00] LABS: POTASSIUM 3.9 mEq/L (3.5-5.2)
[2016-11-15] MEDS: ZOLPIDEM TARTRATE 5 MG TAB PO SCH (21:49)
[2016-11-15] MEDS: NOREPINEPHRINE BITARTRATE 4 MG in D5W 500 ML IV SCH (21:53)
[2016-11-15] MEDS ORDERED: POTASSIUM Cl (KCl) 50 ML IV ONE (23:58)
[2016-11-16] MEDS: PIPERACILLIN/TAZO 4.5 GM/DEX 100 ML IV SCH ×4 (00:07→17:36)
[2016-11-16 03:14] LABS: ABSOLUTE NRBC COUNT 0.16 10^3/uL (0-0.01); ADD DIFF? YES; ADD MORPH? NO; ATYPICAL LYMPHOCYTE FLAG 0 (0-99); FRAGMENT RBC FLAG 0 (0-99); HEMATOCRIT 30.3 % (38.0-47.0); LIPEMIA HEMOLYSIS FLAG 80 (0-99); MEAN CELL VOLUME 87.8 fL (81.5-99.8); MEAN PLATELET VOLUME 13.1 fL (8.7-11.7); NRBC-AUTO% 0.5 % (0.0-0.2); PLATELET CLUMPS FLAG 30 (0-99); PLATELET COUNT 131 10^3/uL (150-400); RED BLOOD CELL COUNT 3.45 10^6/uL (4.18-5.33); RED CELL DISTRIBUTION WIDTH 14.1 % (11.5-15.2)
[2016-11-16 03:17] LABS: ADD SCAN? NO; LEFT SHIFT FLG 300 (0-99)
[2016-11-16 03:27] LABS: ALANINE AMINOTRANSFERASE 42 IU/L (9-52); ALBUMIN 1.9 g/dL (3.5-5.0); ALKALINE PHOSPHATASE 152 IU/L (38-126); ANION GAP 4 mEq/L (8-16); ASPARTATE AMINOTRANSFERASE 35 IU/L (14-46); BILIRUBIN,TOTAL 0.9 mg/dL (0.1-1.4); CALCIUM 8.6 mg/dL (8.5-10.4); CARBON DIOXIDE 16 mEq/l (22-31); CHLORIDE 119 mEq/L (97-110); CREATININE 0.9 mg/dL (0.6-1.0); GLOMERULAR FILTRATION RATE > 60; GLUCOSE 217 mg/dL (70-100); MAGNESIUM 1.9 mg/dL (1.6-2.3); SODIUM 139 mEq/L (134-144); TOTAL PROTEIN 3.9 g/dL (6.3-8.2)
[2016-11-16 04:24] LABS: TOXIC GRANULATION PRESENT; TOXIC VACUOLIZATION PRESENT
[2016-11-16 04:25] LABS: POLYCHROMASIA 1+
[2016-11-16 04:27] LABS: ECHINOCYTES 2+; GIANT PLATELETS PRESENT; LARGE PLATELETS PRESENT; PLATELET ESTIMATE ADEQUATE (ADEQ)
[2016-11-16] MEDS: NYSTATIN SUSP 500000 UNIT/5 ML UDCUP PO SCH ×4 (05:52→21:28)
[2016-11-16] MEDS: INSULIN LISPRO 100 UNIT/ML SC SCH ×3 (08:46→17:35)
[2016-11-16] MEDS: FAMOTIDINE 20 MG TAB PO SCH ×2 (08:46→21:28)
[2016-11-16] MEDS: MICAFUNGIN NA 100 MG in NS 100 ML IV SCH (08:46)
[2016-11-16] MEDS: ENOXAPARIN 40 MG/0.4 ML SYR SC SCH (08:46)
[2016-11-16] MEDS: NOREPINEPHRINE BITARTRATE 4 MG in D5W 500 ML IV SCH (08:51)
[2016-11-16] MEDS: ALBUMIN 25% 100 ML IV SCH ×3 (09:44→17:36)
--- NOTE | 2016-11-16 09:48 | PDINTPN ---
Science Manager Progress Note Assessment/Plan: Assessment: NSCLC: Stage IV. Neutropenic colitis: Symptoms improved. Neutropenia resolved with Neupogen. Sepsis/bacteremia: 1/2 Blood Cx positive for Klebsiella and GNR. On Zosyn and vancomycin. Repeat blood Cx negative at 12 hours. Still requiring low-dose NE to maintain BP. Thrush: On Micafungin. Plan: Wean NE as tolerated. Albumin to help BP. Diet as tolerated. Continue antibiotics. May need port removed depending on repeat blood cultures. 11/16/16 09:47 Subjective: Feels lousy, weak. No pain. Drinking well. Objective: Vital Signs Temp Pulse Resp BP Pulse Ox 36.9 C 112 H 24 H 112/66 98 11/16/16 08:00 11/16/16 09:00 11/16/16 09:00 11/16/16 09:00 11/16/16 09:00 Laboratory Results 11/16/16 02:45 11/16/16 02:45 11/15/16 11/16/16 11/17/16 05:59 05:59 05:59 Intake Total 4022 4656.2 Output Total 3265 2850 Balance 757 1806.2 PT 17.5 SEC (12.0-15.0) H 11/13/16 17:10 INR 1.44 (0.83-1.16) H 11/13/16 17:10 Physical Exam - Physical Exam General Appearance: alert, no apparent distress, other (weak, lethargic) EENT: normal ENT inspection Neck: normal inspection Respiratory: lungs clear, No normal breath sounds Cardiac/Chest: tachycardia, No edema Abdomen: normal bowel sounds, non-tender, soft Skin: normal color, warm/dry Extremities: non-tender Neuro/Psych: alert, normal mood/affect, oriented x 3, other ICD10 Worksheet Patient Problems: Problems Problem Status Onset Colitis Acute Dehydration Acute Hypokalemia Acute Lung cancer Acute Neutropenia Acute Palliative care encounter Acute Thrush Acute Vomiting Acute
[2016-11-16] MEDS ORDERED: ALBUMIN 5% 500 ML IV ONE (09:49)
[2016-11-16] MEDS ORDERED: K PHOS 15 MMOL in D5W 250 ML IV ONE (12:00)
--- NOTE | 2016-11-16 12:28 | PCMIDPN ---
Assessment/Plan: 1. Neutropenic enterocolitis without abscess or perforation: Norepinephrine *just* discontinued, and diarrhea finally starting to slow down. She is no longer neutropenic, but will continue Zosyn as is with plans on tailoring antibiotics as she shows more improvement. GI pathogen PCR negative. Please see #2. 2. Klebsiella pneumoniae sepsis secondary to #1: Repeat blood cultures pending. She quickly cleared her bacteremia, with no evidence of port dysfunction. Port can stay in. Can likely transition to oral quinolone therapy upon discharge. 3. Severe oral candidiasis with probable esophageal disease: Markedly improved. Continue Micafungin for now. 4. Leukocytosis: Likely secondary to g-CSF. 11/16/16 12:29 Subjective: Still very phlegmatic. Norepinephrine just removed now. Continues to have diarrhea, but overall slowing down according to the nurse. No nausea or vomiting. Objective: Zosyn 4.5 g IV q.6 hours day 2. (Antibiotics day 3) Micafungin 100 mg IV daily day 3. Afebrile Vital Signs Temp Pulse Resp BP Pulse Ox 36.8 C 99 20 115/73 100 11/16/16 12:00 11/16/16 12:00 11/16/16 12:00 11/16/16 12:00 11/16/16 12:00 Laboratory Results 11/16/16 02:45 11/16/16 02:45 11/15/16 11/16/16 11/17/16 05:59 05:59 05:59 Intake Total 4022 4656.2 Output Total 3265 2850 650 Balance 757 1806.2 -650 Blood cultures November 1309/17 bottles with Klebsiella pneumoniae November 15 blood cultures are pending GI PCR panel negative - Physical Exam General Appearance: other (Pale, looks tired.) EENT: thrush (Thrush is gone.) Cardiac/Chest: tachycardia, other (Port right chest looks fine with no erythema or tenderness.) Abdomen: non-tender, soft, distended Skin: No rash ICD10 Worksheet Patient Problems: Problems Problem Status Onset Colitis Acute Dehydration Acute Hypokalemia Acute Lung cancer Acute Neutropenia Acute Palliative care encounter Acute Thrush Acute Vomiting Acute
--- NOTE | 2016-11-16 14:43 | HOSPPROG ---
Hospitalist Progress Note Assessment/Plan: * septic shock * wean levophed * cont iv fluids, had albumin * source is klebsiella bacteremia * klebsellia bacteremia * port does not seem to be involved * neutropenic fever * counts have recovered * broad spectrum abx *Diarrhea/typhlitis * gi panel negative * continue Imodium * hyperglycemia * check hemoglobin A1c * start sliding scale insulin * thrush * metastatic nonsmall cell lung cancer * the patient is high risk Subjective: feels a little bit better. Diarrhea is improving. Still very weak. Eating some. Objective: Vital Signs Temp Pulse Resp BP Pulse Ox 36.8 C 112 H 19 101/64 100 11/16/16 12:00 11/16/16 14:00 11/16/16 14:00 11/16/16 14:00 11/16/16 14:00 Laboratory Results 11/16/16 02:45 11/16/16 02:45 11/15/16 11/16/16 11/17/16 05:59 05:59 05:59 Intake Total 4022 4656.2 Output Total 3265 2850 900 Balance 757 1806.2 -900 PT 17.5 SEC (12.0-15.0) H 11/13/16 17:10 INR 1.44 (0.83-1.16) H 11/13/16 17:10 Discussed with pulmonology Tele personally viewed interpreted sinus tachycardia - Physical Exam Constitutional: no apparent distress, appears nourished, not in pain Eyes: anicteric sclera, EOMI Ears, Nose, Mouth, Throat: oral thrush ( improved) Cardiovascular: no murmur, rub, or gallop, tachycardia, No edema Respiratory: no respiratory distress, no rales or rhonchi, clear to auscultation Gastrointestinal: normoactive bowel sounds, soft, non-tender abdomen, no palpable masses Skin: warm Neurologic: AAOx3 Psychiatric: interacting appropriately, not anxious, not encephalopathic, thought process linear ICD10 Worksheet Patient Problems: Problems Problem Status Onset Colitis Acute Dehydration Acute Hypokalemia Acute Lung cancer Acute Neutropenia Acute Palliative care encounter Acute Thrush Acute Vomiting Acute
--- NOTE | 2016-11-16 14:50 | SOAPPROG ---
SOAP Progress Note Assessment/Plan: E&M NSCLC * Metastatic NSCLC: day 10 cycle 1 of docetaxel + ramicurimab; further therapy on hold until recovery and will dose reduce * Klebsiella bacteremia with septic shock: levophed is off with normal BP; slowly getting better. ID planning to keep port and convert to levaquin if she continues to improve. * Neutropenic enterocolitis: wbc recovered and off zarxio; continue abx; appreciate ID. * Hyperglycemia: agree with insulin protocol Subjective: Feeling a little better and ate a little yogurt on ensure. Still with loose stools but less pain and no blood. Still very fatigued. Objective: Vital Signs Temp Pulse Resp BP Pulse Ox 36.8 C 112 H 19 101/64 100 11/16/16 12:00 11/16/16 14:00 11/16/16 14:00 11/16/16 14:00 11/16/16 14:00 Laboratory Results 11/16/16 02:45 11/16/16 02:45 11/15/16 11/16/16 11/17/16 05:59 05:59 05:59 Intake Total 4022 4656.2 Output Total 3265 2850 900 Balance 757 1806.2 -900 PT 17.5 SEC (12.0-15.0) H 11/13/16 17:10 INR 1.44 (0.83-1.16) H 11/13/16 17:10 Laboratory Tests 11/15/16 11/16/16 04:30 02:45 WBC 7.34 33.65 H D Hgb 10.0 L 10.0 L Plt Count 184 D 131 L D Physical Exam - Physical Exam General Appearance: thin, other (ill appearing) Respiratory: lungs clear Cardiac/Chest: regular rate, rhythm Abdomen: non-tender, soft, distended ICD10 Worksheet Patient Problems: Problems Problem Status Onset Colitis Acute Dehydration Acute Hypokalemia Acute Lung cancer Acute Neutropenia Acute Palliative care encounter Acute Thrush Acute Vomiting Acute
[2016-11-16] MEDS: LORazepam 0.5 MG TAB PO PRN (18:56)
[2016-11-16] MEDS: ZOLPIDEM TARTRATE 5 MG TAB PO SCH (21:28)
[2016-11-17] MEDS: ALBUMIN 25% 100 ML IV SCH ×2 (00:15→05:41)
[2016-11-17] MEDS: PIPERACILLIN/TAZO 4.5 GM/DEX 100 ML IV SCH ×4 (00:45→17:23)
[2016-11-17 03:13] LABS: HEMOGLOBIN A1C 9.8 % (4.0-6.0)
[2016-11-17] MEDS: NYSTATIN SUSP 500000 UNIT/5 ML UDCUP PO SCH ×4 (05:43→20:26)
[2016-11-17 06:07] LABS: ABSOLUTE NRBC COUNT 0.19 10^3/uL (0-0.01); ADD DIFF? YES; ADD MORPH? NO; ATYPICAL LYMPHOCYTE FLAG 0 (0-99); FRAGMENT RBC FLAG 0 (0-99); HEMATOCRIT 26.1 % (38.0-47.0); HEMOGLOBIN 8.5 g/dL (12.6-16.3); LIPEMIA HEMOLYSIS FLAG 80 (0-99); MEAN CELL HEMOGLOBIN 28.5 pg (27.9-34.1); MEAN CELL HEMOGLOBIN CONCENTR. 32.6 g/dL (32.4-36.7); MEAN CELL VOLUME 87.6 fL (81.5-99.8); MEAN PLATELET VOLUME 13.3 fL (8.7-11.7); NRBC-AUTO% 0.5 % (0.0-0.2); PLATELET CLUMPS FLAG 10 (0-99); PLATELET COUNT 98 10^3/uL (150-400); RED BLOOD CELL COUNT 2.98 10^6/uL (4.18-5.33); RED CELL DISTRIBUTION WIDTH 14.6 % (11.5-15.2)
[2016-11-17 06:13] LABS: ADD SCAN? NO; LEFT SHIFT FLG 300 (0-99)
[2016-11-17 06:14] LABS: ALANINE AMINOTRANSFERASE 38 IU/L (9-52); ALBUMIN 3.5 g/dL (3.5-5.0); ALKALINE PHOSPHATASE 146 IU/L (38-126); ANION GAP 12 mEq/L (8-16); ASPARTATE AMINOTRANSFERASE 31 IU/L (14-46); BILIRUBIN,TOTAL 0.8 mg/dL (0.1-1.4); CALCIUM 8.5 mg/dL (8.5-10.4); CARBON DIOXIDE 17 mEq/l (22-31); CHLORIDE 122 mEq/L (97-110); CREATININE 0.9 mg/dL (0.6-1.0); GLOMERULAR FILTRATION RATE > 60; GLUCOSE 139 mg/dL (70-100); POTASSIUM 3.7 mEq/L (3.5-5.2); SODIUM 151 mEq/L (134-144); TOTAL PROTEIN 5.3 g/dL (6.3-8.2)
[2016-11-17] MEDS: LORazepam 0.5 MG TAB PO PRN ×2 (06:32→22:01)
[2016-11-17 07:02] LABS: ECHINOCYTES 3+; HYPOCHROMIA 1+; POLYCHROMASIA 1+; TOXIC GRANULATION PRESENT
[2016-11-17 07:03] LABS: PLATELET ESTIMATE DECREASED (ADEQ)
--- NOTE | 2016-11-17 09:34 | CPEKG ---
Heart Rate: 143 RR Interval: 420 P-R Interval: 176 QRSD Interval: 62 QT Interval: 276 QTC Interval: 426 P Prim: 14 QRS Prim: 49 T Wave Prim: -6 EKG Severity - BORDERLINE ECG - EKG Impression: SINUS TACHYCARDIA EKG Impression: LOW VOLTAGE IN FRONTAL LEADS EKG Impression: BORDERLINE T ABNORMALITIES, INFERIOR LEADS Electronically Signed By: Domonique Reece 17-Nov-2016 16:50:52
[2016-11-17] MEDS ORDERED: METOPROLOL TARTRATE 5 MG/5 ML INJ ONE (09:42)
[2016-11-17] MEDS ORDERED: METOPROLOL TARTRATE 5 MG/5 ML INJ IVP ONE (09:42)
[2016-11-17] MEDS: INSULIN LISPRO 100 UNIT/ML SC SCH ×4 (10:15→18:31)
[2016-11-17] MEDS: LOPERAMIDE HCL 2 MG CAP PO PRN ×2 (10:16→20:26)
[2016-11-17] MEDS: ENOXAPARIN 40 MG/0.4 ML SYR SC SCH ×2 (10:16→10:24)
[2016-11-17] MEDS: FAMOTIDINE 20 MG TAB PO SCH ×2 (10:16→20:26)
[2016-11-17] MEDS: MICAFUNGIN NA 100 MG in NS 100 ML IV SCH (10:17)
[2016-11-17] MEDS: METOPROLOL TARTRATE 25 MG TAB PO SCH ×2 (10:28→20:26)
--- NOTE | 2016-11-17 10:51 | PCMIDPN ---
Assessment/Plan: Assessment: Plan: Objective: Vital Signs Temp Pulse Resp BP Pulse Ox 37.1 C 115 H 28 H 108/63 100 11/17/16 00:00 11/17/16 10:28 11/17/16 05:38 11/17/16 10:28 11/17/16 05:38 Laboratory Results 11/17/16 05:40 11/17/16 05:40 11/16/16 11/17/16 11/18/16 05:59 05:59 05:59 Intake Total 4656.2 6879 Output Total 2850 3850 Balance 1806.2 3029 ICD10 Worksheet Patient Problems: Problems Problem Status Onset Colitis Acute Dehydration Acute Hypokalemia Acute Lung cancer Acute Neutropenia Acute Palliative care encounter Acute Thrush Acute Vomiting Acute
--- NOTE | 2016-11-17 14:46 | PDINTPN ---
Site Monitor Progress Note Assessment/Plan: Assessment: NSCLC: Stage IV. Neutropenic colitis: Symptoms improved. Neutropenia resolved with Neupogen. Sepsis/bacteremia: Resolving. 1/2 Blood Cx positive for Klebsiella and GNR. On Zosyn and vancomycin. Repeat blood Cx negative at 12 hours. Off pressors since yesterday. Thrush: On Micafungin. Metabolic: Hypernatremia. Sodium 151 today. Off normal saline. Will follow. DVT prophylaxis: On enoxaparin GI prophylaxis: On Pepcid. Advanced directives: Do not resuscitate per her wishes. Plan: Advance diet. Continue antibiotics, medications. May be able to transfer down to [address] [place] [address]/[facility] at some point later today or tomorrow. Follow laboratory in a.m.. Discussed with the patient's son, nursing, and the ICU multi disciplinary team. 30 minutes of critical care time spent directly with the patient. Subjective: Tired, but feels a little stronger. Denies abdominal pain. Able to eat smoothies Objective: Vital Signs Temp Pulse Resp BP Pulse Ox 37.1 C 107 H 28 H 108/63 96 11/17/16 00:00 11/17/16 12:20 11/17/16 05:38 11/17/16 10:28 11/17/16 07:45 Laboratory Results 11/17/16 05:40 11/17/16 05:40 11/16/16 11/17/16 11/18/16 05:59 05:59 05:59 Intake Total 4656.2 6879 Output Total 2850 3850 Balance 1806.2 3029 PT 17.5 SEC (12.0-15.0) H 11/13/16 17:10 INR 1.44 (0.83-1.16) H 11/13/16 17:10 Laboratory Tests 11/17/16 05:40 Calcium 8.5 Phosphorus 2.2 L D Total Bilirubin 0.8 AST 31 ALT 38 Albumin 3.5 Physical Exam - Physical Exam General Appearance: other (Sleeping, arousable, responsive, appropriate) EENT: PERRL/EOMI, other (Nasal cannula at 2 L) Neck: normal inspection (No JVD) Respiratory: lungs clear, decreased breath sounds (At bases) Cardiac/Chest: tachycardia, systolic murmur Abdomen: normal bowel sounds, non-tender, soft Pelvic Exam: other (Silverman catheter in place. Input greater than output approximately 4 L over the last 48+ hours.) Skin: warm/dry, pallor Extremities: pedal edema (Trace) Neuro/Psych: no motor/sensory deficits, No cognition abnormalities ICD10 Worksheet Patient Problems: Problems Problem Status Onset Hypokalemia Acute Dehydration Acute Vomiting Acute Lung cancer Acute Thrush Acute Neutropenia Acute Colitis Acute Palliative care encounter Acute
[2016-11-17] MEDS ORDERED: AMIODARONE HCL 200 ML IV SCH (15:00)
--- NOTE | 2016-11-17 16:39 | HOSPPROG ---
Hospitalist Progress Note Assessment/Plan: 66-year-old with metastatic non-small cell lung cancer status post chemotherapy presented with septic shock * septic shock * off Levophed * source is klebsiella bacteremia * klebsellia bacteremia * port does not seem to be involved * repeat blood cultures are negative * neutropenic fever * counts have recovered * broad spectrum abx *Diarrhea/typhlitis * gi panel negative * continue Imodium * hyperglycemia * hemoglobin A1c is 9.8 * add Lantus tonight * SVT * will start low-dose beta-chay * thrush * better * hypernatremia * off IV fluids * should correct itself * metastatic nonsmall cell lung cancer * the patient is high risk Subjective: Continues to feel better. heart rate jumped up to the 140s and 150. As we are about to give metoprolol it was back down to 100. this was a narrow complex regular tachycardia Objective: Vital Signs Temp Pulse Resp BP Pulse Ox 37.1 C 107 H 28 H 108/63 96 11/17/16 00:00 11/17/16 12:20 11/17/16 05:38 11/17/16 10:28 11/17/16 07:45 Laboratory Results 11/17/16 05:40 11/17/16 05:40 11/16/16 11/17/16 11/18/16 05:59 05:59 05:59 Intake Total 4656.2 6879 Output Total 2850 3850 Balance 1806.2 3029 PT 17.5 SEC (12.0-15.0) H 11/13/16 17:10 INR 1.44 (0.83-1.16) H 11/13/16 17:10 discussed with Pulmonary tele personally viewed interpreted showed probable SVT now back in sinus rhythm - Physical Exam Constitutional: no apparent distress, appears nourished, not in pain Eyes: anicteric sclera, EOMI Ears, Nose, Mouth, Throat: moist mucous membranes, hearing normal, ears appear normal Cardiovascular: regular rate and rhythym, No systolic murmur Respiratory: no respiratory distress, no rales or rhonchi, clear to auscultation Gastrointestinal: normoactive bowel sounds, soft, non-tender abdomen, no palpable masses Skin: warm Neurologic: AAOx3 Psychiatric: interacting appropriately, not anxious, not encephalopathic, thought process linear ICD10 Worksheet Patient Problems: Problems Problem Status Onset Colitis Acute Dehydration Acute Hypokalemia Acute Lung cancer Acute Neutropenia Acute Palliative care encounter Acute Thrush Acute Vomiting Acute
--- NOTE | 2016-11-17 17:04 | PCMIDPN ---
Assessment/Plan: Assessment: Neutropenic enterocolitis without evidence of perforation. Patient is continuing to have diarrhea at a similar rate. However she feels today is if she has more energy. White blood cell count is more than recovered with the help of stimulating factors. Patient remains afebrile. Plan to cover with Zosyn as this encompasses a significant portion of the gram-negative spectrum along with Enterococcus. Bacteremia with Klebsiella pneumoniae. Repeat blood cultures are no growth to date. Covered by Zosyn. Oral and likely esophageal candidiasis. On micafungin and improving. Plan: 1. Continue both meropenem and micafungin. 2. Follow the repeat blood cultures. 3. Follow her clinical course and consider change to oral Levaquin when she is ready for discharge. Subjective: Patient is still resting in her hospital bed. She complains of continuing diarrhea but states that she feels slightly better today with more energy. No new complaints. Objective: Zosyn #3 Micafungin #4 Vital Signs Temp Pulse Resp BP Pulse Ox 37.1 C 107 H 28 H 108/63 96 11/17/16 00:00 11/17/16 12:20 11/17/16 05:38 11/17/16 10:28 11/17/16 07:45 Laboratory Results 11/17/16 05:40 11/17/16 05:40 11/16/16 11/17/16 11/18/16 05:59 05:59 05:59 Intake Total 4656.2 6879 Output Total 2850 3850 Balance 1806.2 3029 - Physical Exam General Appearance: WD/WN, alert, no apparent distress, non-toxic Respiratory: lungs clear, normal breath sounds, No respiratory distress Cardiac/Chest: regular rate, rhythm, No tachycardia Abdomen: non-tender, soft, No mass Skin: normal color, warm/dry, No rash Neuro/Psych: alert, normal mood/affect, oriented x 3 ICD10 Worksheet Patient Problems: Problems Problem Status Onset Colitis Acute Dehydration Acute Hypokalemia Acute Lung cancer Acute Neutropenia Acute Palliative care encounter Acute Thrush Acute Vomiting Acute
[2016-11-17] MEDS: FONDAPARINUX SODIUM 2.5 MG/0.5 ML SYR SC SCH (17:21)
--- NOTE | 2016-11-17 17:31 | PDPCPN ---
Palliative Care Progress Note Assessment/Plan: HPI: Chanel Apodaca is a 66 yo female with PMH NSCLC with mets to liver, pancreas, and adrenal glands admitted to the hospital for increasing nausea/vomiting, diarrhea, and hypotension. Being treated for septic shock 2/2 klebsiella. Required ICU admission for pressor support which is being weaned down. Recently started third line chemotherapy 1 week ago with uncontrolled symptoms of nausea/ vomiting and diarrhea since then. On admission with neutropenia. Palliative care consulted for complex medical decision making. Spoke with son Jaxon outside of the room. Chanel is feeling still lousy but is ore clear today. He states she is still very weak and began discussions of possible rehab at discharge. The goal is still for recovery from this episode and to talk about future treatment options as outpatient. Assessment: physical: - pain: on occasion in abdomen - dilaudid PRN IV or oxy IR PRN - Nausea/vomiting: - zofran PRN - if needing something more then compazine - Diarrhea: - on antibiotics per primary team - consider immodium if continues Emotional/psychological: - Anxiety: at home on xanax 0.25mg TID scheduled Advanced care planning: Is patient decisional?: yes with help MDPOA: vinicius Coates is MDPOA. Paperwork on file at [facility] Code status: DNR Plan: Continue palliative care conversations as needed. Likely decide on future chemo treatments as outpatient. Discharge planning in process Subjective: did not see patient Objective: Vital Signs Temp Pulse Resp BP Pulse Ox 37.1 C 107 H 28 H 108/63 96 11/17/16 00:00 11/17/16 12:20 11/17/16 05:38 11/17/16 10:28 11/17/16 07:45 Laboratory Results 11/17/16 05:40 11/17/16 05:40 11/16/16 11/17/16 11/18/16 05:59 05:59 05:59 Intake Total 4656.2 6879 Output Total 2850 3850 Balance 1806.2 3029 PT 17.5 SEC (12.0-15.0) H 11/13/16 17:10 INR 1.44 (0.83-1.16) H 11/13/16 17:10 ICD10 Worksheet Patient Problems: Problems Problem Status Onset Colitis Acute Dehydration Acute Hypokalemia Acute Lung cancer Acute Neutropenia Acute Palliative care encounter Acute Thrush Acute Vomiting Acute - ICD10 Problem Qualifiers (1) Palliative care encounter
--- NOTE | 2016-11-17 17:37 | SOAPPROG ---
SOAP Progress Note Assessment/Plan: Assessment: * Metastatic NSCLC: day 11 cycle 1 of docetaxel + ramicurimab. Pt will discuss further therapy with Dr. Kc after she recovers. * Klebsiella bacteremia with sepsis: improving. * Neutropenic enterocolitis: WBC has recovered, off G-CSF. * Deconditioning: will likely need SNF/Rehab. * Advanced care planning: DNR. Palliative service involved. 11/17/16 17:35 Subjective: Very weak. Still some diarrhea. No AP. O: VS reviewed. AF. Gen: fatigued, chronically ill appearing. NAD. Lungs: breathing comfortably. Abd: soft, NT. Laboratory Tests 11/17/16 05:40 WBC 36.79 H Hgb 8.5 L Hct 26.1 L Plt Count 98 L Absolute Seg Neuts 23.55 H Absolute Band Neuts 8.83 H Objective: Vital Signs Temp Pulse Resp BP Pulse Ox 37.1 C 107 H 28 H 108/63 96 11/17/16 00:00 11/17/16 12:20 11/17/16 05:38 11/17/16 10:28 11/17/16 07:45 Laboratory Results 11/17/16 05:40 11/17/16 05:40 11/16/16 11/17/16 11/18/16 05:59 05:59 05:59 Intake Total 4656.2 6879 Output Total 2850 3850 Balance 1806.2 3029 PT 17.5 SEC (12.0-15.0) H 11/13/16 17:10 INR 1.44 (0.83-1.16) H 11/13/16 17:10 ICD10 Worksheet Patient Problems: Problems Problem Status Onset Colitis Acute Dehydration Acute Hypokalemia Acute Lung cancer Acute Neutropenia Acute Palliative care encounter Acute Thrush Acute Vomiting Acute
[2016-11-17] MEDS: INSULIN GLARGINE 100 UNITS/ML SYRINGE SC SCH (20:26)
[2016-11-17] MEDS: oxyCODONE IR 5 MG TAB PO PRN (20:32)
[2016-11-17] MEDS: ZOLPIDEM TARTRATE 5 MG TAB PO SCH (22:01)
[2016-11-18] MEDS: PIPERACILLIN/TAZO 4.5 GM/DEX 100 ML IV SCH ×3 (00:16→12:31)
[2016-11-18] MEDS: NYSTATIN SUSP 500000 UNIT/5 ML UDCUP PO SCH ×4 (05:37→15:34)
[2016-11-18 06:10] LABS: ABSOLUTE NRBC COUNT 0.44 10^3/uL (0-0.01); ADD DIFF? YES; ADD MORPH? YES; ATYPICAL LYMPHOCYTE FLAG 50 (0-99); FRAGMENT RBC FLAG 0 (0-99); HEMATOCRIT 29.5 % (38.0-47.0); HEMOGLOBIN 9.7 g/dL (12.6-16.3); LIPEMIA HEMOLYSIS FLAG 80 (0-99); MEAN CELL HEMOGLOBIN 28.7 pg (27.9-34.1); MEAN CELL HEMOGLOBIN CONCENTR. 32.9 g/dL (32.4-36.7); MEAN CELL VOLUME 87.3 fL (81.5-99.8); MEAN PLATELET VOLUME 13.5 fL (8.7-11.7); PLATELET CLUMPS FLAG 0 (0-99); PLATELET COUNT 97 10^3/uL (150-400); RED BLOOD CELL COUNT 3.38 10^6/uL (4.18-5.33); RED CELL DISTRIBUTION WIDTH 14.9 % (11.5-15.2)
[2016-11-18 06:13] LABS: ANION GAP 8 mEq/L (8-16); CALCIUM 8.7 mg/dL (8.5-10.4); CARBON DIOXIDE 18 mEq/l (22-31); CHLORIDE 119 mEq/L (97-110); CREATININE 0.8 mg/dL (0.6-1.0); GLOMERULAR FILTRATION RATE > 60; GLUCOSE 124 mg/dL (70-100); POTASSIUM 3.5 mEq/L (3.5-5.2); SODIUM 145 mEq/L (134-144)
[2016-11-18 06:29] LABS: ADD SCAN? NO; LEFT SHIFT FLG 240 (0-99); NRBC-AUTO% 1.7 % (0.0-0.2)
[2016-11-18 07:26] LABS: PLATELET ESTIMATE DECREASED (ADEQ); TOXIC GRANULATION PRESENT
[2016-11-18 07:32] LABS: MICROCYTES 1+; POLYCHROMASIA 1+
[2016-11-18 07:34] LABS: LARGE PLATELETS PRESENT
[2016-11-18 07:35] LABS: GIANT PLATELETS PRESENT; ROULEAUX PRESENT
--- NOTE | 2016-11-18 09:00 | SOAPPROG ---
SOAP Progress Note Assessment/Plan: Assessment: SOAP Progress Note Assessment/Plan: Assessment: * Metastatic NSCLC: day 12 cycle 1 of docetaxel + ramicurimab. Pt will discuss further therapy with Dr. Kc after she recovers. * Klebsiella bacteremia with sepsis: improving. * Neutropenic enterocolitis: WBC has recovered. Likely elevated due to prior neupagen. * Deconditioning: Patient living independently prior to this hospitalization. Discussed likely need for SNF for rehab. She understands and seems agreeable. * Advanced care planning: DNR. Palliative service involved. Subjective: very weak, appetite improving. No pain Objective: Vital Signs Temp Pulse Resp BP Pulse Ox 35.2 C L 96 20 125/88 H 94 11/18/16 08:44 11/18/16 08:44 11/18/16 08:44 11/18/16 08:44 11/18/16 08:44 Laboratory Results 11/18/16 05:30 11/18/16 05:30 11/17/16 11/18/16 11/19/16 05:59 05:59 05:59 Intake Total 6879 750 Output Total 3850 2700 Balance 3029 -1950 PT 17.5 SEC (12.0-15.0) H 11/13/16 17:10 INR 1.44 (0.83-1.16) H 11/13/16 17:10 Physical Exam - Physical Exam General Appearance: alert, other (appears very weak) Neck: supple Respiratory: other (left lung clear, right lung with decreased breath sounds) Abdomen: non-tender, soft Extremities: No pedal edema Neuro/Psych: alert ICD10 Worksheet Patient Problems: Problems Problem Status Onset Colitis Acute Dehydration Acute Hypokalemia Acute Lung cancer Acute Neutropenia Acute Palliative care encounter Acute Thrush Acute Vomiting Acute
[2016-11-18] MEDS: METOPROLOL TARTRATE 25 MG TAB PO SCH ×2 (09:22→21:24)
[2016-11-18] MEDS: FAMOTIDINE 20 MG TAB PO SCH ×2 (09:22→21:24)
[2016-11-18] MEDS: MICAFUNGIN NA 100 MG in NS 100 ML IV SCH (09:22)
[2016-11-18] MEDS: INSULIN LISPRO 100 UNIT/ML SC SCH ×3 (09:27→18:22)
[2016-11-18] MEDS: ACETAMINOPHEN 325 MG TAB PO PRN (10:51)
[2016-11-18] MEDS: FONDAPARINUX SODIUM 2.5 MG/0.5 ML SYR SC SCH (10:52)
--- NOTE | 2016-11-18 15:12 | HOSPPROG ---
Hospitalist Progress Note Assessment/Plan: 66-year-old with metastatic non-small cell lung cancer status post chemotherapy presented with septic shock * septic shock * off Levophed * source is klebsiella bacteremia, likely secondary to neutropenic enterocolitis * port does not seem to be involved * repeat blood cultures are negative * decreased zosyn per ID * neutropenic fever * counts have recovered, leukocytosis likely secondary to neupogen * broad spectrum abx * metastatic nonsmall cell lung cancer * chemo per onc *Diarrhea/typhlitis * gi panel negative * continue Imodium * increased distention, check KUB/upright * hyperglycemia * hemoglobin A1c is 9.8 * bg's improved with addition of lantus * SVT * tolerating metoprolol * thrush * better, d/c oral nystatin. she should be covered with the micafungin, change to fluconazole per ID * hypernatremia * improving * dispo - will need SNF, CM consult requested Subjective: Pt complains of diarrhea. She is unable to ambulate due to stool incontinence with being upright, needs immodium. No fevers/chills. No abdominal pain. Overall feeling better, but very weak. Objective: Vital Signs Temp Pulse Resp BP Pulse Ox 35.2 C L 96 20 125/88 H 94 11/18/16 08:44 11/18/16 08:44 11/18/16 08:44 11/18/16 08:44 11/18/16 08:44 Laboratory Results 11/18/16 05:30 11/18/16 05:30 11/17/16 11/18/16 11/19/16 05:59 05:59 05:59 Intake Total 6879 750 Output Total 3850 2700 150 Balance 3029 -1950 -150 PT 17.5 SEC (12.0-15.0) H 11/13/16 17:10 INR 1.44 (0.83-1.16) H 11/13/16 17:10 - Physical Exam Constitutional: no apparent distress Eyes: PERRL Ears, Nose, Mouth, Throat: moist mucous membranes Cardiovascular: regular rate and rhythym Respiratory: no respiratory distress, clear to auscultation Gastrointestinal: other (hyperactive bowel tones, +increased distention, non- tender) Skin: warm Musculoskeletal: generalized weakness Neurologic: AAOx3 Psychiatric: interacting appropriately ICD10 Worksheet Patient Problems: Problems Problem Status Onset Colitis Acute Dehydration Acute Hypokalemia Acute Lung cancer Acute Neutropenia Acute Palliative care encounter Acute Thrush Acute Vomiting Acute
[2016-11-18] MEDS: LOPERAMIDE HCL 2 MG CAP PO PRN ×3 (15:24→21:30)
--- NOTE | 2016-11-18 15:30 | PDPCPN ---
Palliative Care Progress Note Assessment/Plan: HPI: Chanel Apodaca is a 66 yo female with PMH NSCLC with mets to liver, pancreas, and adrenal glands admitted to the hospital for increasing nausea/vomiting, diarrhea, and hypotension. Being treated for septic shock 2/2 klebsiella. Required ICU admission for pressor support which is being weaned down. Recently started third line chemotherapy 1 week ago with uncontrolled symptoms of nausea/ vomiting and diarrhea since then. On admission with neutropenia. Palliative care consulted for complex medical decision making. Chanel seen this afternoon with son present. Much more awake and alert but very weak and fatigued. She is hoping to improve in strength to get back home. She understands likely this will include rehab at discharge but will take it a day at a time and see how she improves. Assessment: physical: - pain: on occasion in abdomen - dilaudid PRN IV or oxy IR PRN or tylenol - Nausea/vomiting: - zofran PRN - if needing something more then compazine - Diarrhea: - on antibiotics per primary team - immodium PRN Emotional/psychological: - Anxiety: at home on xanax 0.25mg TID scheduled Advanced care planning: Is patient decisional?: yes MDPOA: son Jxaon is MDPOA. Paperwork on file at [facility] Code status: DNR Plan: Continue palliative care conversations as needed. Likely decide on future chemo treatments as outpatient. Discharge planning in process Subjective: I feel so weak Objective: Vital Signs Temp Pulse Resp BP Pulse Ox 35.2 C L 96 20 125/88 H 94 11/18/16 08:44 11/18/16 08:44 11/18/16 08:44 11/18/16 08:44 11/18/16 08:44 Laboratory Results 11/18/16 05:30 11/18/16 05:30 11/17/16 11/18/16 11/19/16 05:59 05:59 05:59 Intake Total 6879 750 Output Total 3850 2700 150 Balance 3029 -1950 -150 PT 17.5 SEC (12.0-15.0) H 11/13/16 17:10 INR 1.44 (0.83-1.16) H 11/13/16 17:10 Physical Exam - Physical Exam General Appearance: alert, no apparent distress Respiratory: No respiratory distress, No accessory muscle use Skin: normal color, warm/dry Extremities: No pedal edema Neuro/Psych: alert, oriented x 3 ICD10 Worksheet Patient Problems: Problems Problem Status Onset Colitis Acute Dehydration Acute Hypokalemia Acute Lung cancer Acute Neutropenia Acute Palliative care encounter Acute Thrush Acute Vomiting Acute - ICD10 Problem Qualifiers (1) Palliative care encounter
--- NOTE | 2016-11-18 16:02 | PCMIDPN ---
Assessment/Plan: Assessment/Plan: * Sepsis due to neutropenic enterocolitis with concomitant Klebsiella bacteremia : Overall slowly improving with recovery of neutrophil count. Repeat blood cultures show clearing of bacteremia. Diarrhea not fully resolved but is markedly decreased. Will decrease Zosyn from pseudomonal dosing to more traditional dosing since no Pseudomonas has been isolated and ANC has recovered. Likely can begin to taper antibiotics further if shows ongoing clinical improvement. * Esophageal candidiasis: No residual thrush present. Will transition micafungin to fluconazole. Discontinue nystatin as this is causing mucosal irritation. 11/18/16 15:59 Subjective: Persistent diarrhea which has decreased significantly but is requiring Imodium; 2 episodes so far today. No difficulty or pain with swallowing. Abdomen feels bloated but is nontender. Objective: Vital Signs Temp Pulse Resp BP Pulse Ox 35.2 C L 96 20 125/88 H 94 11/18/16 08:44 11/18/16 08:44 11/18/16 08:44 11/18/16 08:44 11/18/16 08:44 Laboratory Results 11/18/16 05:30 11/18/16 05:30 11/17/16 11/18/16 11/19/16 05:59 05:59 05:59 Intake Total 6879 750 Output Total 3850 2700 150 Balance 3029 -1950 -150 Zosyn # 4 Micafungin # 5 Blood cultures 11/15/2016 no growth - Physical Exam General Appearance: alert, no apparent distress EENT: other (Mild palatal erythema), No thrush Respiratory: lungs clear, other (Mildly increased respiratory effort) Cardiac/Chest: tachycardia, other (Port nontender without erythema) Abdomen: non-tender, distended (Mild) Skin: No embolic lesions ICD10 Worksheet Patient Problems: Problems Problem Status Onset Colitis Acute Dehydration Acute Hypokalemia Acute Lung cancer Acute Neutropenia Acute Palliative care encounter Acute Thrush Acute Vomiting Acute
[2016-11-18] MEDS: PIPERACILLIN/TAZO 3.375 GM/DEX 50 ML IV SCH ×2 (18:25→23:59)
[2016-11-18] MEDS: LORazepam 0.5 MG TAB PO PRN (21:23)
[2016-11-18] MEDS: ZOLPIDEM TARTRATE 5 MG TAB PO SCH (21:23)
[2016-11-18] MEDS: INSULIN GLARGINE 100 UNITS/ML SYRINGE SC SCH (21:25)
[2016-11-19 02:29] LABS: ABSOLUTE NRBC COUNT 0.22 10^3/uL (0-0.01); ADD DIFF? YES; ADD MORPH? NO; ADD SCAN? YES; ATYPICAL LYMPHOCYTE FLAG 50 (0-99); FRAGMENT RBC FLAG 0 (0-99); HEMATOCRIT 28.5 % (38.0-47.0); HEMOGLOBIN 9.4 g/dL (12.6-16.3); LIPEMIA HEMOLYSIS FLAG 80 (0-99); MEAN CELL HEMOGLOBIN 29.5 pg (27.9-34.1); MEAN CELL VOLUME 89.3 fL (81.5-99.8); MEAN PLATELET VOLUME 13.1 fL (8.7-11.7); PLATELET CLUMPS FLAG 0 (0-99); PLATELET COUNT 113 10^3/uL (150-400); RED BLOOD CELL COUNT 3.19 10^6/uL (4.18-5.33); RED CELL DISTRIBUTION WIDTH 14.9 % (11.5-15.2)
[2016-11-19 02:41] LABS: ANION GAP 7 mEq/L (8-16); CALCIUM 8.7 mg/dL (8.5-10.4); CARBON DIOXIDE 20 mEq/l (22-31); CHLORIDE 117 mEq/L (97-110); CREATININE 0.8 mg/dL (0.6-1.0); GLOMERULAR FILTRATION RATE > 60; GLUCOSE 89 mg/dL (70-100); POTASSIUM 3.3 mEq/L (3.5-5.2); SODIUM 144 mEq/L (134-144)
[2016-11-19 02:44] LABS: LEFT SHIFT FLG 100 (0-99)
[2016-11-19 03:42] LABS: LARGE PLATELETS PRESENT; MICROCYTES 1+; POLYCHROMASIA 1+; ROULEAUX PRESENT; TOXIC GRANULATION PRESENT
[2016-11-19 03:43] LABS: ELLIPTOCYTES 1+; PLATELET ESTIMATE DECREASED (ADEQ)
[2016-11-19] MEDS: PIPERACILLIN/TAZO 3.375 GM/DEX 50 ML IV SCH ×3 (05:33→17:51)
[2016-11-19] MEDS: FONDAPARINUX SODIUM 2.5 MG/0.5 ML SYR SC SCH (08:53)
[2016-11-19] MEDS: METOPROLOL TARTRATE 25 MG TAB PO SCH ×2 (08:54→21:49)
[2016-11-19] MEDS: FAMOTIDINE 20 MG TAB PO SCH ×2 (08:54→21:50)
[2016-11-19] MEDS: FLUCONAZOLE/NaCl 100 ML IV SCH (08:56)
[2016-11-19] MEDS: INSULIN LISPRO 100 UNIT/ML SC SCH ×3 (08:57→17:47)
--- NOTE | 2016-11-19 10:26 | PCMIDPN ---
Assessment/Plan: Assessment: Neutropenic enterocolitis without evidence of perforation. Patient is having decreased diarrhea but she attributes this to immodium use mostly. Plan to continue to cover with Zosyn as this encompasses a significant portion of the gram-negative spectrum along with Enterococcus. Bacteremia with Klebsiella pneumoniae. Repeat blood cultures are no growth to date. Covered by Zosyn. Oral and likely esophageal candidiasis. On fluconazole and improving. Plan: 1. Continue both zosyn and fluconazole. 2. Follow the repeat blood cultures. 3. Follow her clinical course and consider change to oral Levaquin when she is ready for discharge. Subjective: Patient doing better. Increased energy and appetite, although still complains of diarrheal episodes if she does not use immodium. Objective: Zosyn #5 fluconazole #2 Vital Signs Temp Pulse Resp BP Pulse Ox 36.8 C 95 20 118/75 97 11/19/16 02:14 11/19/16 08:54 11/19/16 08:06 11/19/16 08:54 11/19/16 08:06 Laboratory Results 11/19/16 02:19 11/19/16 02:19 11/18/16 11/19/16 11/20/16 05:59 05:59 05:59 Intake Total 750 2100 Output Total 2700 1850 1250 Balance -1950 250 -1250 - Physical Exam General Appearance: WD/WN, alert, no apparent distress, non-toxic Respiratory: lungs clear, normal breath sounds, No respiratory distress Cardiac/Chest: regular rate, rhythm, No tachycardia Abdomen: non-tender, soft Skin: normal color, warm/dry, No rash Neuro/Psych: alert, normal mood/affect, oriented x 3 ICD10 Worksheet Patient Problems: Problems Problem Status Onset Colitis Acute Dehydration Acute Hypokalemia Acute Lung cancer Acute Neutropenia Acute Palliative care encounter Acute Thrush Acute Vomiting Acute
--- NOTE | 2016-11-19 11:08 | WOCRNPDOC ---
WOCRN Advanced Assessment Note - Skin Integrity Problem, Advanced Assess Back Burn Dressing Type: Open to Air Skin Integrity Problem Comment: Tiny partial thickness open wound 0.3x0.3xscab. No need for wound care. Edges that were superficial castillo are re-epithelized and of no concern. Wound care will not follow. Please reconsult prn.
--- NOTE | 2016-11-19 12:44 | HOSPPROG ---
Hospitalist Progress Note Assessment/Plan: 66-year-old with metastatic non-small cell lung cancer status post chemotherapy presented with septic shock * septic shock ( resolved) secondary to Klebsiella bacteremia in the setting of neutropenic enterocolitis * continue antibiotics per ID * neutropenic fever (Resolved) * counts have recovered, leukocytosis likely secondary to neupogen * broad spectrum abx * metastatic nonsmall cell lung cancer * chemo per onc *Diarrhea/typhlitis * gi panel negative * continue Imodium * increased distention ( KUB done 11/18/2016 was reviewed and consistent with adynamic ileus) * hyperglycemia * hemoglobin A1c is 9.8 * bg's improved with addition of lantus * SVT * tolerating metoprolol * thrush * continue micafungin * hypernatremia * improving * dispo - will need SNF, CM consult requested Subjective: continues to have diarrhea and abdominal distension. Denies fevers or chills. Tolerating diet. Overall feeling better today Objective: Vital Signs Temp Pulse Resp BP Pulse Ox 36.6 C 99 16 120/77 98 11/19/16 12:06 11/19/16 12:06 11/19/16 12:06 11/19/16 12:06 11/19/16 12:06 Laboratory Results 11/19/16 02:19 11/19/16 02:19 11/18/16 11/19/16 11/20/16 05:59 05:59 05:59 Intake Total 750 2100 Output Total 2700 1850 1250 Balance -1950 250 -1250 PT 17.5 SEC (12.0-15.0) H 11/13/16 17:10 INR 1.44 (0.83-1.16) H 11/13/16 17:10 - Physical Exam Constitutional: no apparent distress, appears nourished, not in pain Ears, Nose, Mouth, Throat: moist mucous membranes, hearing normal, ears appear normal, no oral mucosal ulcers, oral thrush Cardiovascular: regular rate and rhythym, no murmur, rub, or gallop Respiratory: no respiratory distress, no rales or rhonchi, clear to auscultation Gastrointestinal: normoactive bowel sounds, soft, non-tender abdomen, no palpable masses, distension, No guarding, No rebound Neurologic: AAOx3, sensation intact bilaterally ICD10 Worksheet Patient Problems: Problems Problem Status Onset Hypokalemia Acute Dehydration Acute Vomiting Acute Lung cancer Acute Thrush Acute Neutropenia Acute Colitis Acute Palliative care encounter Acute
--- NOTE | 2016-11-19 14:02 | SOAPPROG ---
SOAP Progress Note Assessment/Plan: Assessment: * Metastatic NSCLC: day 13 cycle 1 of docetaxel + ramicurimab. Pt will discuss further therapy with Dr. Kc after she recovers. * Klebsiella bacteremia with sepsis: improving. * Neutropenic enterocolitis: WBC has recovered, off G-CSF. * Deconditioning: will need SNF/Rehab. * Advanced care planning: DNR. Palliative service involved. 11/19/16 14:01 Subjective: Feels she is getting stronger. No pain. Mild diarrhea. Working with PT. Son present. O: VS reviewed, AF. Gen; chronically ill appearing, NAD. Lungs: breathing comfortably. Abd: NT. Laboratory Tests 11/19/16 02:19 WBC 21.80 H Hgb 9.4 L Plt Count 113 L Objective: Vital Signs Temp Pulse Resp BP Pulse Ox 36.6 C 99 16 120/77 98 11/19/16 12:06 11/19/16 12:06 11/19/16 12:06 11/19/16 12:06 11/19/16 12:06 Laboratory Results 11/19/16 02:19 11/19/16 02:19 11/18/16 11/19/16 11/20/16 05:59 05:59 05:59 Intake Total 750 2100 Output Total 2700 1850 2000 Balance -1950 250 -2000 PT 17.5 SEC (12.0-15.0) H 11/13/16 17:10 INR 1.44 (0.83-1.16) H 11/13/16 17:10 ICD10 Worksheet Patient Problems: Problems Problem Status Onset Colitis Acute Dehydration Acute Hypokalemia Acute Lung cancer Acute Neutropenia Acute Palliative care encounter Acute Thrush Acute Vomiting Acute
[2016-11-19 18:23] LABS: HEPARIN INDUCED ANTIBODY Negative (Negative); REACTIVITY 4 % (<20)
[2016-11-19] MEDS: LOPERAMIDE HCL 2 MG CAP PO PRN (20:05)
[2016-11-19] MEDS: LORazepam 0.5 MG TAB PO PRN (21:50)
[2016-11-19] MEDS: INSULIN GLARGINE 100 UNITS/ML SYRINGE SC SCH (21:50)
[2016-11-19] MEDS: ZOLPIDEM TARTRATE 5 MG TAB PO SCH (21:50)
[2016-11-20] MEDS: PIPERACILLIN/TAZO 3.375 GM/DEX 50 ML IV SCH ×5 (00:30→23:58)
[2016-11-20] MEDS: INSULIN LISPRO 100 UNIT/ML SC SCH ×3 (08:13→17:16)
[2016-11-20] MEDS: METOPROLOL TARTRATE 25 MG TAB PO SCH ×2 (09:36→22:11)
[2016-11-20] MEDS: FONDAPARINUX SODIUM 2.5 MG/0.5 ML SYR SC SCH (09:38)
[2016-11-20] MEDS: LOPERAMIDE HCL 2 MG CAP PO PRN ×2 (09:38→20:28)
[2016-11-20] MEDS: FLUCONAZOLE/NaCl 100 ML IV SCH (09:39)
[2016-11-20] MEDS: FAMOTIDINE 20 MG TAB PO SCH ×2 (09:39→22:11)
--- NOTE | 2016-11-20 11:44 | PCMIDPN ---
Assessment/Plan: Assessment/Plan: * Sepsis due to neutropenic enterocolitis with concomitant Klebsiella bacteremia : Bacteremia has cleared. Continue Zosyn in the setting of ongoing diarrhea. Ultimately, can complete therapy with an oral fluoroquinolone once she has shown enough improvement. * Diarrhea: Agree with plans to check C difficile toxin given persistent diarrhea in the setting of ongoing broad-spectrum antibiotic use; initial C diff toxin was negative at time of presentation. May also have residual diarrhea related to bowel injury from neutropenic enterocolitis. * Esophageal candidiasis: No residual thrush present. Continue fluconazole. 11/20/16 11:42 Subjective: Patient complains of persistent watery diarrhea and abdominal distention without abdominal pain. Objective: Vital Signs Temp Pulse Resp BP Pulse Ox 36.3 C 113 H 15 118/68 95 11/20/16 08:06 11/20/16 09:36 11/20/16 08:06 11/20/16 09:36 11/20/16 08:06 Laboratory Results 11/19/16 02:19 11/19/16 02:19 11/19/16 11/20/16 11/21/16 05:59 05:59 05:59 Intake Total 2100 300 Output Total 1850 4550 1200 Balance 250 -4250 -1200 Zosyn # 6 Fluconazole # 2 (anti fungal # 7) Blood cultures 11/15/2016 no growth - Physical Exam General Appearance: alert, no apparent distress EENT: No scleral icterus, No thrush Respiratory: lungs clear (Anterolaterally), No respiratory distress Cardiac/Chest: regular rate, rhythm, other (Port nontender without erythema) Abdomen: non-tender, distended ICD10 Worksheet Patient Problems: Problems Problem Status Onset Colitis Acute Dehydration Acute Hypokalemia Acute Lung cancer Acute Neutropenia Acute Palliative care encounter Acute Thrush Acute Vomiting Acute
[2016-11-20] MEDS: oxyCODONE IR 5 MG TAB PO PRN ×2 (13:45→20:27)
--- NOTE | 2016-11-20 16:26 | HOSPPROG ---
Hospitalist Progress Note Assessment/Plan: 66-year-old with metastatic non-small cell lung cancer status post chemotherapy presented with septic shock * septic shock ( resolved) secondary to Klebsiella bacteremia in the setting of neutropenic enterocolitis * continue antibiotics per ID * neutropenic fever (Resolved) * counts have recovered, leukocytosis likely secondary to neupogen * broad spectrum abx * metastatic nonsmall cell lung cancer * chemo per onc *Diarrhea/typhlitis * gi panel negative with repeat negative cdiff done 11/20 * continue Imodium * increased distention will consider ct abd/pelvis if continues to worsen * hyperglycemia * hemoglobin A1c is 9.8 * bg's improved with addition of lantus * SVT * tolerating metoprolol * thrush * hypernatremia * improving * dispo - will need SNF, CM consult requested Subjective: continues to have diarrhea. very weak and unable of work with PT due to abdominal distention. tolerating diet. no fevers or chills Objective: Vital Signs Temp Pulse Resp BP Pulse Ox 36.4 C 91 18 121/87 H 95 11/20/16 15:46 11/20/16 15:46 11/20/16 15:46 11/20/16 15:46 11/20/16 15:46 Laboratory Results 11/19/16 02:19 11/19/16 02:19 11/19/16 11/20/16 11/21/16 05:59 05:59 05:59 Intake Total 2100 300 560 Output Total 1850 4550 1600 Balance 250 -4250 -1040 PT 17.5 SEC (12.0-15.0) H 11/13/16 17:10 INR 1.44 (0.83-1.16) H 11/13/16 17:10 - Physical Exam Constitutional: no apparent distress, appears nourished, not in pain Cardiovascular: regular rate and rhythym, no murmur, rub, or gallop Respiratory: no respiratory distress, no rales or rhonchi, clear to auscultation Gastrointestinal: soft, non-tender abdomen, no palpable masses, distension, other ( hypoactive bowel sounds), No guarding, No rebound Neurologic: AAOx3 ICD10 Worksheet Patient Problems: Problems Problem Status Onset Hypokalemia Acute Dehydration Acute Vomiting Acute Lung cancer Acute Thrush Acute Neutropenia Acute Colitis Acute Palliative care encounter Acute
[2016-11-20] MEDS: INSULIN GLARGINE 100 UNITS/ML SYRINGE SC SCH ×2 (22:08→23:31)
[2016-11-20] MEDS: ZOLPIDEM TARTRATE 5 MG TAB PO SCH (22:10)
[2016-11-20] MEDS: LORazepam 0.5 MG TAB PO PRN (22:11)
[2016-11-21] MEDS: oxyCODONE IR 5 MG TAB PO PRN ×3 (00:40→19:08)
[2016-11-21] MEDS: PIPERACILLIN/TAZO 3.375 GM/DEX 50 ML IV SCH ×2 (05:19→12:02)
[2016-11-21] MEDS: INSULIN LISPRO 100 UNIT/ML SC SCH ×3 (09:07→17:46)
[2016-11-21] MEDS: FAMOTIDINE 20 MG TAB PO SCH ×2 (09:09→21:46)
[2016-11-21] MEDS: ENOXAPARIN 40 MG/0.4 ML SYR SC SCH (09:09)
[2016-11-21] MEDS: FLUCONAZOLE/NaCl 100 ML IV SCH (09:09)
[2016-11-21] MEDS: METOPROLOL TARTRATE 25 MG TAB PO SCH ×2 (09:10→21:45)
--- NOTE | 2016-11-21 10:07 | PCMIDPN ---
Assessment/Plan: 1. Neutropenic enterocolitis without abscess or perforation: Neutropenia has resolved. Continue Zosyn as is for now. Present dose is fine. Repeat C difficile toxin negative. 2. Klebsiella pneumoniae sepsis secondary to #1: Continue Zosyn, with plans for possible quinolone therapy upon discharge. She has not yet ready for this. 3. Severe oral candidiasis with probable esophageal disease: Resolved. Continue fluconazole, but change dose to 100 mg IV daily to complete 14 days of therapy. 11/21/16 10:07 Subjective: Diarrhea got better, and then yesterday worsened again, with explosive stools. She states that these are nonbloody. No significant abdominal pain, but she is uncomfortable secondary to bloating and abdominal distention. Has not yet had a bowel movement today. Ate breakfast. No nausea. Still fairly deconditioned. Objective: Zosyn 3.375 g IV q.6 hours day 7. Fluconazole 200 mg IV daily day 3 (anti fungal day 04/27) Afebrile Vital Signs Temp Pulse Resp BP Pulse Ox 36.4 C 91 16 111/71 98 11/21/16 08:00 11/21/16 09:10 11/21/16 08:00 11/21/16 09:10 11/21/16 08:00 Microbiology 11/15/16 15:35 Blood Culture - Final Blood 11/15/16 16:00 Blood Culture - Final Blood Laboratory Results 11/19/16 02:19 11/19/16 02:19 11/20/16 11/21/16 11/22/16 05:59 05:59 05:59 Intake Total 300 1925 Output Total 4550 2600 Balance -4250 -675 No new microbiology. Repeat C difficile toxin negative - Physical Exam General Appearance: other (Looks tired, but overall looks better then the last time I saw her (over the weekend)) EENT: No thrush Cardiac/Chest: other (Port right chest looks fine without erythema or tenderness ) Abdomen: distended, other (Hyperactive bowel sounds. No significant abdominal discomfort. Anasarca.) Skin: No rash ICD10 Worksheet Patient Problems: Problems Problem Status Onset Colitis Acute Dehydration Acute Hypokalemia Acute Lung cancer Acute Neutropenia Acute Palliative care encounter Acute Thrush Acute Vomiting Acute
--- NOTE | 2016-11-21 13:09 | HOSPPROG ---
Hospitalist Progress Note Assessment/Plan: 66-year-old with metastatic non-small cell lung cancer status post chemotherapy presented with septic shock * septic shock ( resolved) secondary to Klebsiella bacteremia in the setting of neutropenic enterocolitis * continue antibiotics per ID and plan for dc on oral quinolones * neutropenic fever (Resolved) * counts have recovered, leukocytosis likely secondary to neupogen * broad spectrum abx * metastatic nonsmall cell lung cancer * chemo per onc *Diarrhea/typhlitis improving since starting oxycontin * gi panel negative with repeat negative cdiff done 11/20 * continue Imodium * hyperglycemia * hemoglobin A1c is 9.8 * bg's improved with addition of lantus * SVT * tolerating metoprolol * thrush * hypernatremia * improving * dispo -snf next 24-48 hours as long as diarrhea and strength improve Subjective: feeling better today with less diarrhea. still very weak. tolerating diet Objective: Vital Signs Temp Pulse Resp BP Pulse Ox 36.4 C 91 16 111/71 98 11/21/16 08:00 11/21/16 09:10 11/21/16 08:00 11/21/16 09:10 11/21/16 08:00 Microbiology 11/15/16 15:35 Blood Culture - Final Blood 11/15/16 16:00 Blood Culture - Final Blood Laboratory Results 11/19/16 02:19 11/19/16 02:19 11/20/16 11/21/16 11/22/16 05:59 05:59 05:59 Intake Total 300 1925 Output Total 4550 2600 Balance -4250 -675 PT 17.5 SEC (12.0-15.0) H 11/13/16 17:10 INR 1.44 (0.83-1.16) H 11/13/16 17:10 - Physical Exam Constitutional: no apparent distress, appears nourished, not in pain Cardiovascular: regular rate and rhythym, no murmur, rub, or gallop Respiratory: no respiratory distress, no rales or rhonchi, clear to auscultation Gastrointestinal: normoactive bowel sounds, soft, non-tender abdomen, no palpable masses, distension, No guarding, No rebound Neurologic: AAOx3, sensation intact bilaterally ICD10 Worksheet Patient Problems: Problems Problem Status Onset Hypokalemia Acute Dehydration Acute Vomiting Acute Lung cancer Acute Thrush Acute Neutropenia Acute Colitis Acute Palliative care encounter Acute
--- NOTE | 2016-11-21 14:47 | SOAPPROG ---
SOAP Progress Note Assessment/Plan: Assessment: * Metastatic NSCLC: C1D14 docetaxel + ramicurimab. Pt will discuss further therapy with Dr. Kc after she recovers. * Klebsiella bacteremia with sepsis: improving. * Neutropenic enterocolitis: WBC has recovered, off G-CSF. * Deconditioning: will need SNF/Rehab. * Advanced care planning: DNR. Palliative service involved. 11/21/16 14:45 Subjective: Very weak. Walked in room to door and bathroom today. Son present. O: Gen: fatigued, NAD. Abd: soft. Objective: Vital Signs Temp Pulse Resp BP Pulse Ox 36.4 C 91 16 111/71 98 11/21/16 08:00 11/21/16 09:10 11/21/16 08:00 11/21/16 09:10 11/21/16 08:00 Microbiology 11/15/16 15:35 Blood Culture - Final Blood 11/15/16 16:00 Blood Culture - Final Blood Laboratory Results 11/19/16 02:19 11/19/16 02:19 11/20/16 11/21/16 11/22/16 05:59 05:59 05:59 Intake Total 300 1925 Output Total 4550 2600 350 Balance -4250 -675 -350 PT 17.5 SEC (12.0-15.0) H 11/13/16 17:10 INR 1.44 (0.83-1.16) H 11/13/16 17:10 ICD10 Worksheet Patient Problems: Problems Problem Status Onset Colitis Acute Dehydration Acute Hypokalemia Acute Lung cancer Acute Neutropenia Acute Palliative care encounter Acute Thrush Acute Vomiting Acute
[2016-11-21] MEDS: LOPERAMIDE HCL 2 MG CAP PO PRN (16:00)
[2016-11-21] MEDS: PIPERACILLIN SODIUM/TAZOBACTAM 3.375 GM in D5W 50 ML IV SCH (17:46)
[2016-11-21] MEDS: ZOLPIDEM TARTRATE 5 MG TAB PO SCH (21:46)
[2016-11-21] MEDS: LORazepam 0.5 MG TAB PO PRN (21:46)
[2016-11-21] MEDS: INSULIN GLARGINE 100 UNITS/ML SYRINGE SC SCH (22:05)
[2016-11-22] MEDS: PIPERACILLIN SODIUM/TAZOBACTAM 3.375 GM in D5W 50 ML IV SCH ×3 (05:46→12:19)
[2016-11-22] MEDS: oxyCODONE IR 5 MG TAB PO PRN ×3 (06:47→21:50)
[2016-11-22] MEDS: INSULIN LISPRO 100 UNIT/ML SC SCH ×3 (09:30→18:23)
[2016-11-22] MEDS: FLUCONAZOLE/NaCl 100 MG in BAG 0 ML IV SCH (09:33)
[2016-11-22] MEDS: FAMOTIDINE 20 MG TAB PO SCH ×2 (09:33→20:31)
[2016-11-22] MEDS: ENOXAPARIN 40 MG/0.4 ML SYR SC SCH (09:33)
[2016-11-22] MEDS: METOPROLOL TARTRATE 25 MG TAB PO SCH ×2 (09:35→20:31)
--- NOTE | 2016-11-22 14:36 | PCMIDPN ---
Assessment/Plan: Assessment: Neutropenic enterocolitis without evidence of perforation. Patient is improving slowly. Decreased amounts of diarrhea. Bacteremia with Klebsiella pneumoniae. Repeat blood cultures are no growth to date. Covered by Zosyn. Oral and likely esophageal candidiasis. On fluconazole and improving. Plan: 1. Continue both zosyn and fluconazole. 2. Follow the repeat blood cultures. 3. Follow her clinical course and consider change to oral Levaquin when she is ready for discharge. Subjective: Patient is resting in her hospital bed. No new issues. Still speaks of being fatigued from her illness. No fevers or chills. Objective: Zosyn # 8 Fluconazole # 4 Vital Signs Temp Pulse Resp BP Pulse Ox 36.5 C 96 18 115/76 99 11/22/16 07:59 11/22/16 07:59 11/22/16 07:59 11/22/16 07:59 11/22/16 07:59 Microbiology 11/15/16 15:35 Blood Culture - Final Blood Laboratory Results 11/19/16 02:19 11/19/16 02:19 11/21/16 11/22/16 11/23/16 05:59 05:59 06:59 Intake Total 1925 4664 550 Output Total 2600 2650 700 Balance -675 2014 -150 - Physical Exam General Appearance: WD/WN, alert, no apparent distress, non-toxic Respiratory: lungs clear, normal breath sounds, No respiratory distress Cardiac/Chest: regular rate, rhythm, No tachycardia Skin: normal color, warm/dry, No rash Neuro/Psych: alert, normal mood/affect, oriented x 3 ICD10 Worksheet Patient Problems: Problems Problem Status Onset Colitis Acute Dehydration Acute Hypokalemia Acute Lung cancer Acute Neutropenia Acute Palliative care encounter Acute Thrush Acute Vomiting Acute
--- NOTE | 2016-11-22 15:40 | HOSPPROG ---
Hospitalist Progress Note Assessment/Plan: 66-year-old F with metastatic non-small cell lung cancer status post chemotherapy presented with septic shock secondary to enterococcus. ASSESSMENT/PLAN: Abdominal bloating Hypoglycemic episodes, secondary to insulin SVT Oral candidiasis w/ suspected esophageal candidiasis Neutropenic enterocolitis, resolving Hypernatremia, resolving Metastatic non-small cell lung cancer Septic shock, resolved - Klebsiella Neutropenic fever, resolved Diarrhea, resolved -DC Lantus, back down on SSI to low scale. -Simethicone to help w/ bloating. Recommended pt continue to walk w/ PT to help relieve gas. May also change positions to help w/ release. -Continue other current medications. -Onc recs appreciated - chemo on hold. -ID recs appreciated - IV antimicrobials. -Pall Med recs appreciated. VTE prophylaxis: enoxaparin. GI prophylaxis: famotidine. Code Status: DNR Status: Med Surg, inpatient > 2 midnight Disposition: SNF in the next 24-48 hours if improvement in her status. 45 total minutes of [id number] time with the patient/family members and floor time with other physicians, RNs, >50% of which was spent counseling and coordinating patient care. ____ SUBJECTIVE: Saw patient and her son this afternoon. She was c/o gaseous abd distention and discomfort from it - she is using oxycodone to help w/ pain. Not passing gas. No BM recently. Tolerating diet. OBJECTIVE: Physical Exam: General: The patient is an elderly female who is alert and in no acute distress. HEENT: normocephalic, extraocular movements intact, conjunctivae clear. Mucous membranes moist. Neck: trachea midline, no visible masses, no external lesions. Abd: soft and moderately distended. Tympanic to percussion. Nontender to superficial palpation, Mildly tender to deep palpation throughout abdomen. Musculoskeletal: Normal muscle tone and bulk. Moves all extremities. Neuro: cranial nerves II XII grossly intact. Intact gross motor and sensory function. Psych: appropriate mood/affect. Skin: No pallor. Heme/lymph: No peripheral edema. Labs/Imaging/Other Tests: Personally reviewed/interpreted. Objective: Vital Signs Temp Pulse Resp BP Pulse Ox 36.5 C 96 18 115/76 99 11/22/16 07:59 11/22/16 07:59 11/22/16 07:59 11/22/16 07:59 11/22/16 07:59 Laboratory Results 11/19/16 02:19 11/19/16 02:19 11/21/16 11/22/16 11/23/16 05:59 05:59 06:59 Intake Total 1925 4664 550 Output Total 2600 2650 700 Balance -675 2013 - PT 17.5 SEC (12.0-15.0) H 11/13/16 17:10 INR 1.44 (0.83-1.16) H 11/13/16 17:10 ICD10 Worksheet Patient Problems: Problems Problem Status Onset Colitis Acute Dehydration Acute Hypokalemia Acute Lung cancer Acute Neutropenia Acute Palliative care encounter Acute Thrush Acute Vomiting Acute
[2016-11-22] MEDS: PIPERACILLIN/TAZO 3.375 GM/DEX 50 ML IV SCH (18:18)
[2016-11-22] MEDS: INSULIN GLARGINE 100 UNITS/ML SYRINGE SC SCH (20:30)
[2016-11-22] MEDS: ZOLPIDEM TARTRATE 5 MG TAB PO SCH (21:46)
[2016-11-22] MEDS: LORazepam 0.5 MG TAB PO PRN (21:46)
[2016-11-22] MEDS: SIMETHICONE 80 MG TAB CHEW PO SCH (21:50)
[2016-11-23] MEDS: PIPERACILLIN/TAZO 3.375 GM/DEX 50 ML IV SCH ×5 (00:11→23:27)
[2016-11-23] MEDS: INSULIN LISPRO 100 UNIT/ML SC SCH ×3 (09:16→19:26)
[2016-11-23] MEDS: ENOXAPARIN 40 MG/0.4 ML SYR SC SCH (10:27)
[2016-11-23] MEDS: SIMETHICONE 80 MG TAB CHEW PO SCH ×4 (10:28→20:34)
[2016-11-23] MEDS: FAMOTIDINE 20 MG TAB PO SCH ×2 (10:28→20:24)
[2016-11-23] MEDS: METOPROLOL TARTRATE 25 MG TAB PO SCH ×2 (10:28→20:24)
[2016-11-23] MEDS: FLUCONAZOLE/NaCl 100 MG in BAG 0 ML IV SCH (10:32)
--- NOTE | 2016-11-23 14:10 | PCMIDPN ---
Assessment/Plan: Assessment: Neutropenic enterocolitis without evidence of perforation. Patient is improving slowly. Decreased amounts of diarrhea both in amount and intensity. Bacteremia with Klebsiella pneumoniae. Repeat blood cultures are no growth to date. Covered by Zosyn. Fine with change to oral Levaquin to complete a 2 week course from clean blood cultures. Stop date 11/26/2016. Oral and likely esophageal candidiasis. On fluconazole and improving. Plan: 1. Continue both zosyn and fluconazole. Probable discharge tomorrow. 2. Follow her clinical course and consider change to oral Levaquin when she is ready for discharge. Subjective: Patient resting in her hospital bed. Complains of significant weakness. States she did not think that she would feel this week after this illness. No fevers or chills. Agrees that her diarrhea is improving. Objective: Zosyn # 9 Fluconazole # 5 Vital Signs Temp Pulse Resp BP Pulse Ox 36.6 C 92 16 110/63 99 11/23/16 08:00 11/23/16 08:00 11/23/16 08:00 11/23/16 08:00 11/23/16 08:00 Laboratory Results 11/19/16 02:19 11/19/16 02:19 11/22/16 11/23/16 11/24/16 04:59 05:59 05:59 Intake Total Output Total 1000 Balance -1000 - Physical Exam General Appearance: WD/WN, alert, no apparent distress, non-toxic, other (Weak and tired appearing) Respiratory: lungs clear, normal breath sounds, No respiratory distress Cardiac/Chest: regular rate, rhythm, No tachycardia Skin: normal color, warm/dry, No rash Neuro/Psych: alert, normal mood/affect ICD10 Worksheet Patient Problems: Problems Problem Status Onset Colitis Acute Dehydration Acute Hypokalemia Acute Lung cancer Acute Neutropenia Acute Palliative care encounter Acute Thrush Acute Vomiting Acute
[2016-11-23] MEDS: oxyCODONE IR 5 MG TAB PO PRN ×2 (14:49→20:31)
--- NOTE | 2016-11-23 19:15 | HOSPPROG ---
Hospitalist Progress Note Assessment/Plan: 66-year-old F with metastatic non-small cell lung cancer status post chemotherapy presented with septic shock secondary to enterococcus. ASSESSMENT/PLAN: Diarrhea Abdominal bloating Hypoglycemic episodes, secondary to insulin SVT Oral candidiasis w/ suspected esophageal candidiasis Neutropenic enterocolitis, resolving Hypernatremia, resolving Metastatic non-small cell lung cancer Septic shock, resolved - Klebsiella Neutropenic fever, resolved -DC insulin altogether. A1C had been elevated, but pt's BG are lower last few days. -Simethicone to help w/ bloating - increasing dose. Recommended pt continue to walk w/ PT to help relieve gas. May also change positions to help w/ release. -Continue other current medications. -Onc recs appreciated - chemo on hold. -ID recs appreciated - IV antimicrobials. Switch to po Levaquin upon DC to SNF. -Pall Med recs would be appreciated. VTE prophylaxis: enoxaparin. GI prophylaxis: famotidine. Code Status: DNR Status: Med Surg, inpatient > 2 midnight Disposition: SNF tomorrow w/ po Levaquin. 30 total minutes of [id number] time with the patient/family members and floor time with other physicians, RNs, >50% of which was spent counseling and coordinating patient care. ____ SUBJECTIVE: Saw patient this morning. She was c/o gaseous abd distention and discomfort from it - she is using oxycodone to help w/ pain. Not passing gas except for when she has BM, w/ diarrhea. OBJECTIVE: Physical Exam: General: The patient is an elderly female who is alert and in no acute distress. HEENT: normocephalic, extraocular movements intact, conjunctivae clear. Mucous membranes moist. Neck: trachea midline, no visible masses, no external lesions. CV: S1/S2, RRR no MRG. Resp: unlabored, CTAB no RRW. Abd: soft and moderately distended. Tympanic to percussion. Nontender to superficial palpation, Mildly tender to deep palpation throughout abdomen. Musculoskeletal: Normal muscle tone and bulk. Moves all extremities. Neuro: cranial nerves II XII grossly intact. Intact gross motor and sensory function. Psych: appropriate mood/affect. Skin: No pallor. Heme/lymph: trace peripheral edema b/l ankles. Labs/Imaging/Other Tests: Personally reviewed/interpreted. Objective: Vital Signs Temp Pulse Resp BP Pulse Ox 36.6 C 92 16 110/63 99 11/23/16 08:00 11/23/16 08:00 11/23/16 08:00 11/23/16 08:00 11/23/16 08:00 Laboratory Results 11/19/16 02:19 11/19/16 02:19 11/22/16 11/23/16 11/24/16 04:59 05:59 05:59 Intake Total Output Total 1500 Balance -1500 PT 17.5 SEC (12.0-15.0) H 11/13/16 17:10 INR 1.44 (0.83-1.16) H 11/13/16 17:10 ICD10 Worksheet Patient Problems: Problems Problem Status Onset Colitis Acute Dehydration Acute Hypokalemia Acute Lung cancer Acute Neutropenia Acute Palliative care encounter Acute Thrush Acute Vomiting Acute
[2016-11-23] MEDS: ZOLPIDEM TARTRATE 5 MG TAB PO SCH (22:01)
[2016-11-23] MEDS: LORazepam 0.5 MG TAB PO PRN ×2 (22:06→22:08)
[2016-11-24] MEDS: PIPERACILLIN/TAZO 3.375 GM/DEX 50 ML IV SCH (05:32)
[2016-11-24 05:59] LABS: % IMMATURE GRANULYOCYTES 0.7 % (0.0-1.1); ABSOLUTE IMMATURE GRANULOCYTES 0.05 10^3/uL (0.00-0.10); ADD DIFF? NO; ADD MORPH? NO; ADD SCAN? NO; ATYPICAL LYMPHOCYTE FLAG 30 (0-99); FRAGMENT RBC FLAG 0 (0-99); HEMATOCRIT 27.2 % (38.0-47.0); HEMOGLOBIN 8.6 g/dL (12.6-16.3); LEFT SHIFT FLG 0 (0-99); LIPEMIA HEMOLYSIS FLAG 80 (0-99); MEAN CELL HEMOGLOBIN 29.6 pg (27.9-34.1); MEAN CELL HEMOGLOBIN CONCENTR. 31.6 g/dL (32.4-36.7); MEAN CELL VOLUME 93.5 fL (81.5-99.8); MEAN PLATELET VOLUME 10.9 fL (8.7-11.7); PLATELET CLUMPS FLAG 0 (0-99); PLATELET COUNT 346 10^3/uL (150-400); RED BLOOD CELL COUNT 2.91 10^6/uL (4.18-5.33); RED CELL DISTRIBUTION WIDTH 16.8 % (11.5-15.2)
[2016-11-24 06:21] LABS: ANION GAP 6 mEq/L (8-16); CALCIUM 8.5 mg/dL (8.5-10.4); CARBON DIOXIDE 22 mEq/l (22-31); CHLORIDE 113 mEq/L (97-110); CREATININE 0.8 mg/dL (0.6-1.0); GLOMERULAR FILTRATION RATE > 60; GLUCOSE 89 mg/dL (70-100); POTASSIUM 4.3 mEq/L (3.5-5.2); SODIUM 141 mEq/L (134-144)
[2016-11-24] MEDS: LOPERAMIDE HCL 2 MG CAP PO PRN (09:31)
[2016-11-24] MEDS: FAMOTIDINE 20 MG TAB PO SCH (09:31)
[2016-11-24] MEDS: METOPROLOL TARTRATE 25 MG TAB PO SCH (09:31)
[2016-11-24] MEDS: SIMETHICONE 80 MG TAB CHEW PO SCH ×2 (09:31→12:34)
[2016-11-24] MEDS: FLUCONAZOLE/NaCl 100 MG in BAG 0 ML IV SCH (09:32)
[2016-11-24] MEDS: ENOXAPARIN 40 MG/0.4 ML SYR SC SCH ×2 (09:32→09:37)
--- NOTE | 2016-11-24 10:45 | PCMIDPN ---
Assessment/Plan: Assessment/Plan: * Sepsis due to neutropenic enterocolitis with concomitant Klebsiella bacteremia : Bacteremia has cleared. Neutropenia resolved. Overall significantly clinically improved. Plan 2 weeks of IV antibiotic therapy post clearance of bacteremia. Will change Zosyn to ceftriaxone as still has poor p.o. intake. Therapy will continue through 11/29/2016. * Diarrhea: C difficile toxin negative. Overall has slowed significantly. Suspect may be related to bowel injury from neutropenic enterocolitis. * Esophageal candidiasis: No residual thrush present. Plan 14 days of anti fungal therapy. Will complete this with oral fluconazole. 11/24/16 10:43 Subjective: Overall patient feels better but still weak. Patient with 3 episodes of diarrhea per day although small volume. Objective: Vital Signs Temp Pulse Resp BP Pulse Ox 36.7 C 93 14 113/79 97 11/24/16 07:25 11/24/16 09:31 11/24/16 07:25 11/24/16 09:31 11/24/16 07:25 Laboratory Results 11/24/16 05:53 11/24/16 05:53 11/23/16 11/24/16 11/25/16 05:59 05:59 05:59 Intake Total 500 Output Total 2850 700 Balance -2350 -700 Zosyn # 10 Fluconazole # 6, anti fungal # 11 Blood cultures 11/15/16 no growth - Physical Exam General Appearance: alert, no apparent distress EENT: No thrush Cardiac/Chest: regular rate, rhythm, other (Port nontender without erythema) Extremities: pedal edema Abdomen: non-tender, distended (Mild distention with subcutaneous edema) ICD10 Worksheet Patient Problems: Problems Problem Status Onset Colitis Acute Dehydration Acute Hypokalemia Acute Lung cancer Acute Neutropenia Acute Palliative care encounter Acute Thrush Acute Vomiting Acute
--- NOTE | 2016-11-24 10:47 | PDIAF ---
- Diagnosis Diagnosis: Klebsiella bacteremia Code Status: Do Not Resuscitate - Medication Management Discharge Medications: Medications to Continue on Transfer ALPRAZolam [Xanax 0.25 MG (*)] 0.25 mg PO TID 11/13/16 [Last Taken 11/13/16 12: 00] Atenolol [Tenormin 25 mg (*)] 25 mg PO DAILY 11/13/16 [Last Taken Unknown] Metformin HCl [Metformin HCl ER] 500 mg PO BID 11/13/16 [Last Taken 11/12/16] Ondansetron Odt [Zofran Odt 4 mg (*)] 8 mg PO TID 11/13/16 [Last Taken 11/12/16 20:00] Zolpidem Tartrate [Ambien 5MG (*)] 10 mg PO HS 11/13/16 [Last Taken 11/12/16] Usp Antibiotics: Ceftriaxone 2 g IV daily, fluconazole 100 mg orally daily Respiratory Care Assistant Antibiotic Stop Date: 11/29/16 Discharge Medications: Refer to the Discharge Home Medication list for PRN reason. PICC Care - Routine: N/A (Port care) - Follow Up Care Current Providers and Referrals: NONE *PRIMARY CARE P,. [Primary Care Provider] - As per Instructions
[2016-11-24] MEDS ORDERED: cefTRIAXone 2 GM in D5W 50 ML IV SCH (11:00)
--- NOTE | 2016-11-24 11:43 | HOSPPROG ---
Hospitalist Progress Note Assessment/Plan: 66-year-old F with metastatic non-small cell lung cancer status post chemotherapy presented with septic shock secondary to enterococcus. ASSESSMENT/PLAN: Diarrhea Abdominal bloating Hypoglycemic episodes, secondary to insulin SVT Oral candidiasis w/ suspected esophageal candidiasis Neutropenic enterocolitis, resolving Hypernatremia, resolving Metastatic non-small cell lung cancer Septic shock, resolved - Klebsiella Neutropenic fever, resolved -DC insulin altogether. A1C had been elevated, but pt's BG are lower last few days. -Simethicone to help w/ bloating - increasing dose. Recommended pt continue to walk w/ PT to help relieve gas. May also change positions to help w/ release. -Continue other current medications. -Onc recs appreciated - chemo on hold. -ID recs appreciated - IV antimicrobials. Switch to po Levaquin upon DC to SNF. -Pall Med recs would be appreciated. VTE prophylaxis: enoxaparin. GI prophylaxis: famotidine. Code Status: DNR Status: Med Surg, inpatient > 2 midnight Disposition: SNF tomorrow w/ po Levaquin. Subjective: feeling well, slightly weak Objective: Vital Signs Temp Pulse Resp BP Pulse Ox 36.7 C 93 14 113/79 97 11/24/16 07:25 11/24/16 09:31 11/24/16 07:25 11/24/16 09:31 11/24/16 07:25 Laboratory Results 11/24/16 05:53 11/24/16 05:53 11/23/16 11/24/16 11/25/16 05:59 05:59 05:59 Intake Total 500 Output Total 2850 700 Balance -2350 -700 PT 17.5 SEC (12.0-15.0) H 11/13/16 17:10 INR 1.44 (0.83-1.16) H 11/13/16 17:10 Laboratory Tests 11/13/16 11/18/16 11/19/16 17:10 05:30 02:19 WBC 26.29 H 21.80 H Hgb 9.7 L 9.4 L Plt Count 97 L 113 L INR 1.44 H 11/24/16 05:53 WBC 7.11 Hgb 8.6 L Plt Count 346 INR - Time Spent With Patient Time Spent with Patient: greater than 35 minutes Time Spent with Patient: Greater than 35 minutes spent on this patients care, greater than 50% of time spent counseling, educating, and coordinating care regarding the above mentioned plan. - Pending Discharge Pending Discharge Within 24 Hours: Yes Pending Discharge Date: 11/25/16 Pending Discharge Time: 11:00 - Physical Exam Constitutional: no apparent distress, chronically ill appearing Eyes: PERRL Ears, Nose, Mouth, Throat: moist mucous membranes Cardiovascular: regular rate and rhythym, no murmur, rub, or gallop Respiratory: no respiratory distress, no rales or rhonchi Gastrointestinal: distension, other (slight tenderness overall without rebound) Genitourinary: no bladder fullness Skin: warm Musculoskeletal: generalized weakness Neurologic: AAOx3, CN II-XII Intact Psychiatric: interacting appropriately ICD10 Worksheet Patient Problems: Problems Problem Status Onset Hypokalemia Acute Dehydration Acute Vomiting Acute Lung cancer Acute Thrush Acute Neutropenia Acute Colitis Acute Palliative care encounter Acute
--- NOTE | 2016-11-24 11:52 | PDIAF ---
- Diagnosis Diagnosis: Klebsiella bacteremia Code Status: Do Not Resuscitate - Medication Management Discharge Medications: Medications to Continue on Transfer ALPRAZolam [Xanax 0.25 MG (*)] 0.25 mg PO TID 11/13/16 [Last Taken 11/13/16 12: 00] Atenolol [Tenormin 25 mg (*)] 25 mg PO DAILY 11/13/16 [Last Taken Unknown] Metformin HCl [Metformin HCl ER] 500 mg PO BID 11/13/16 [Last Taken 11/12/16] Ondansetron Odt [Zofran Odt 4 mg (*)] 8 mg PO TID 11/13/16 [Last Taken 11/12/16 20:00] Zolpidem Tartrate [Ambien 5MG (*)] 10 mg PO HS 11/13/16 [Last Taken 11/12/16] Acetaminophen [Tylenol 325mg (*)] 650 mg PO Q4HRS PRN #0 tab 11/24/16 [Last Taken Unknown] Famotidine [Pepcid 20 MG (*)] 20 mg PO BID #0 tab 11/24/16 [Last Taken Unknown] Fluconazole [Diflucan (*)] 100 mg PO DAILY #0 tab 11/24/16 [Last Taken Unknown] LORazepam [Ativan (*)] 0.5 - 1 mg PO Q8HRS PRN #0 tab 11/24/16 [Last Taken Unknown] Loperamide HCl [Imodium 2 mg (*)] 2 mg PO PRN PRN #0 cap 11/24/16 [Last Taken Unknown] Zolpidem Tartrate [Ambien 5MG (*)] 5 mg PO HS #0 tab 11/24/16 [Last Taken Unknown] cefTRIAXone [Rocephin] 2 gm IV DAILY 7 Days 11/24/16 [Last Taken Unknown] oxyCODONE IR [Oxycodone Ir (*)] 5 - 10 mg PO Q3HRS PRN #0 tab 11/24/16 [Last Taken Unknown] Custodial Antibiotics: Ceftriaxone 2 g IV daily, fluconazole 100 mg orally daily Policy Writer Sales Antibiotic Stop Date: 11/29/16 Discharge Medications: Refer to the Discharge Home Medication list for PRN reason. PICC Care - Routine: N/A (Port care) - Orders Services needed: Registered Nurse, Certified Diet Counselor, Master Budget And Policy Analyst , Physical Therapy, Occupational Therapy Diet Recommendation: no restrictions on diet Diet Texture: Regular Texture Diet - Labs/Radiology CBC Date: 12/01/16 CMP Date: 12/01/16 - Follow Up Care Current Providers and Referrals: Demetrius Rios MD [Medical Doctor] - NONE *PRIMARY CARE P,. [Primary Care Provider] - As per Instructions
[2016-11-24] MEDS: oxyCODONE IR 5 MG TAB PO PRN (12:34)
[2016-11-24 15:07] VITALS: BP 139/84; PULSE 94; RESP 20; TEMP 97.6; O2SAT 91
--- NOTE | 2016-11-24 21:41 | GDS ---
[f rep st] DISCHARGE SUMMARY DISCHARGE DIAGNOSES: 1. Acute septic shock, status post Levophed, IV fluids and antibiotics. 2. Klebsiella bacteremia. 3. Neutropenic fever. 4. Oral thrush. 5. Metastatic non-small cell lung carcinoma. 6. Diarrhea with Clostridium difficile negative. Suspect the diarrhea was related to bowel injury from the neutropenic enterocolitis. 7. Electrolyte disorders, multiple, with hyponatremia now resolved. CONSULTATIONS: Intensive Care Medicine, infectious Disease, Oncology, Palliative Care. HOSPITAL COURSE: A 66-year-old female, who presented with fever and septic shock. On presentation, the patient was hypotensive, tachycardic, and neutropenic. Blood cultures, failed to grow and a PC R on the gastrointestinal tract showed no organisms were detected. The patient was noted to have ba cteremia with Klebsiella pneumonia. Blood cultures did not grow anything to date. She was placed o n broad-spectrum antibiotics and significantly improved. Palliative Care was consulted. No definit jake change in care was made in the palliative care consultation, but the plan was to continue the co nversation in light of her advanced lung carcinoma. DISCHARGE MEDICATIONS: New medications of Tylenol, Rocephin 2 g IV daily for the next 7 days, Pepci d 20 mg twice daily, fluconazole 100 mg p.o., Imodium, lorazepam. She will resume her prior medicat ions of metformin, Zofran and Ambien. PLAN: The patient was discharged to a senior care facility. Follow up will be with Dr. Chetan Michaels by for Oncology. Palliative Care can also be further consulted during her ongoing care. The Roceph in will be delivered IV and continued for the next 7 days, to be stopped on December 01. Time of discharge required 55 minutes, greater than 50% to direct selling counselor and coordinate care. /[id number]/MODL
[2016-11-25] MEDS ORDERED: FLUCONAZOLE 100 MG TAB PO SCH (09:00)
== END 2016-11-24 16:34 | DRG 871 ==
LOC: F2N 22:55 → F1N 11-17 21:49
PROVIDERS: ADMIT Hospitalist; ATTEND Internal Medicine Pulmonary Disease
PROC: 3E043XZ Introduction of Vasopressor into Central Vein, Percutaneous Approach (ICD-10-PCS; principal; 2016-11-13)
DX: A41.59 Other Gram-negative sepsis (principal); R65.21 Severe sepsis with septic shock; K52.89 Other specified noninfective gastroenteritis and colitis; C34.90 Malignant neoplasm of unspecified part of unspecified bronchus or lung; C78.00 Secondary malignant neoplasm of unspecified lung; C78.7 Secondary malignant neoplasm of liver and intrahepatic bile duct; C78.89 Secondary malignant neoplasm of other digestive organs; C79.72 Secondary malignant neoplasm of left adrenal gland; C77.2 Secondary and unspecified malignant neoplasm of intra-abdominal lymph nodes; D70.1 Agranulocytosis secondary to cancer chemotherapy; D64.81 Anemia due to antineoplastic chemotherapy; B37.0 Candidal stomatitis; B37.81 Candidal esophagitis; E87.6 Hypokalemia; E87.1 Hypo-osmolality and hyponatremia; E87.0 Hyperosmolality and hypernatremia; I47.1 Supraventricular tachycardia; I81 Portal vein thrombosis; Z87.891 Personal history of nicotine dependence
CPT/HCPCS: 86022-90; 96365; 97116-GP; 97161-GP; 97165-GO; 97530-GO; 97530-GP; 97535-GO; G8978-GP-CK; G8979-GP-CI; G8987-GO-CK; G8987-GO-CM; G8988-GO-CI; J0282; J0692; J0696; J1450; J1650; J1652; J1815; J2248; J2370; J2405; J2543; J3370; P9041; P9047; Q5101-ZA; Q9967